=== PATIENT | female | born 1955 | race Hispanic/Latino ===

== ENCOUNTER 2017-05-18 12:26 | Emergency (ER) | payer OTHER ==
--- NOTE | 2017-05-18 16:05 | RAD ---
THREE VIEWS RIGHT FOOT: History: Swelling, progressively worse. FINDINGS: AP, lateral and oblique views demonstrates no evidence of right foot fractures, subluxations, or bon y lesions. A small calcaneal bone spur is seen. Arterial vessel calcifications noted. IMPRESSION: No evidence of right foot abnormality seen. POS: [facility]
--- NOTE | 2017-05-18 17:22 | ULT ---
RIGHT LOWER EXTREMITY VENOUS DOPPLER ULTRASOUND EVALUATION: History: Right foot edema, pain for three weeks. Date: 05-18-17 FINDINGS: Multiple longitudinal and transverse images of the right lower extremity venous system is obtained u sing a multihertz linear array transducer. Real-time, color flow, and spectral waveform doppler anal ysis is used to evaluate the right lower extremity venous system. The right common femoral, superficial femoral, femoral profunda, popliteal, posterior tibial vein, p ost trifurcation veins and right greater saphenous vein are all patent. No evidence of acute or old clot seen. IMPRESSION: No evidence of right lower extremity deep venous thrombosis. POS: [facility]
== END 2017-05-18 15:00 | disposition home or self-care (01) ==
LOC: ERS 12:26
DX: M79.89 Other specified soft tissue disorders (principal); K21.9 Gastro-esophageal reflux disease without esophagitis; F41.9 Anxiety disorder, unspecified; F31.9 Bipolar disorder, unspecified; F17.210 Nicotine dependence, cigarettes, uncomplicated; Z86.19 Personal history of other infectious and parasitic diseases; Z86.73 Personal history of transient ischemic attack (TIA), and cerebral infarction without residual deficits

== ENCOUNTER 2017-09-29 12:36 | Emergency (ER) | payer OTHER ==
--- NOTE | 2017-09-29 13:30 | CT ---
CT OF THE BRAIN WITHOUT CONTRAST: COMPARISON: 06/12/2010 HISTORY: Altered mental status. TECHNIQUE: Multiple contiguous axial images were obtained in a CT of the brain without contrast. 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 This leaves a streak artifac t. There is no evidence of hydrocephalus, intracranial hemorrhage, or extraaxial fluid collection. The visualized paranasal sinuses and mastoid air cells are well-aerated. IMPRESSION: No evidence of acute intracranial abnormality. POS: [facility]
[2017-09-29 16:47] LABS: Hemoglobin 14.1 g/dL (12.0-16.0); Mean Corpuscular HGB CONC 33.8 g/dL (32.0-36.0); Mean Platelet Volume 12.8 fL (7.4-10.4); RBC Distribution Width 13.6 % (11.5-14.5); Red Blood Cell (RBC) Count 4.16 mill/uL (4.20-5.40); White Blood Cell (WBC) Count 3.3 thou/uL (4.8-10.8)
[2017-09-29 16:59] LABS: #Eosinphils 0.2 thou/uL (0.0-0.7); #Monocytes 0.2 thou/uL (0.11-0.59); #Neutrophils 1.9 thou/uL (1.40-6.50); %Basophils 0.3 % (0.0-1.0); %Monocytes 4.4 % (0.0-10.0); %Neutrophils 59.3 % (42.0-75.0); Large Platelets SLIGHT; MDiff Complete? YES; PLT Morphology Comment Appears Decreased
[2017-09-29 17:00] LABS: Platelet Count 49 thou/uL (130-400)
[2017-09-29 17:08] LABS: ALT (SGPT) 25 U/L (8-55); AST (SGOT) 56 U/L (5-34); Albumin 3.1 g/dL (3.4-4.8); Alkaline Phosphatase 136 U/L (40-150); Anion Gap 9 mmol/L (10-20); BUN (Urea Nitrogen) 11 mg/dL (9.8-20.1); Bilirubin, Total 0.6 mg/dL (0.2-1.2); Calc. Creatinine Clearance 0 mL/min (70-130); Calcium 8.7 mg/dL (7.8-10.44); Carbon Dioxide 25 mmol/L (23-31); Chloride 108 mmol/L (98-107); Estimated GFR-MDRD 86; Globulin 4.3 g/dL (2.4-3.5); Glucose 97 mg/dL (80-115); Potassium 3.7 mmol/L (3.5-5.1); Protein, Total 7.4 g/dL (6.0-8.3); Sodium 138 mmol/L (136-145)
[2017-09-29 17:42] LABS: Bilirubin Negative (Negative); Blood, Urine Negative (Negative); Clarity CLOUDY (Clear); Glucose, Urine (Dipstick) Negative (Negative); Leukocyte Small (Negative); Nitrite Positive (Negative); Protein, Urine (Dipstick) Negative (Neg-Trace); Specific Gravity, Urine 1.021 (1.002-1.036)
[2017-09-29 17:47] LABS: Bacteria/HPF 4+ HPF (None Seen); Hyaline Casts/LPF 4-6 HYALINE CAST LPF (0-3 Hyaline)
== END 2017-09-29 18:26 | disposition home or self-care (01) ==
LOC: ERS 12:36
DX: N39.0 Urinary tract infection, site not specified (principal); D69.6 Thrombocytopenia, unspecified; R53.1 Weakness; K21.9 Gastro-esophageal reflux disease without esophagitis; F31.9 Bipolar disorder, unspecified; F41.9 Anxiety disorder, unspecified; F17.210 Nicotine dependence, cigarettes, uncomplicated; Z79.899 Other long term (current) drug therapy
CPT/HCPCS: 36415; 70450; 80053; 81003; 81015; 82140; 85025

== ENCOUNTER 2017-10-03 13:55 | Emergency (ER) | payer OTHER ==
[2017-10-03] MEDS ORDERED: Ondansetron HCl/PF 4 MG/2 ML Vial ONE ×2 (14:41→18:13)
[2017-10-03 14:47] LABS: Hemoglobin 14.3 g/dL (12.0-16.0); Mean Corpuscular HGB CONC 34.4 g/dL (32.0-36.0); Mean Corpuscular Volume 98.7 fl (81.0-99.0); Mean Platelet Volume 12.4 fL (7.4-10.4); RBC Distribution Width 13.8 % (11.5-14.5)
[2017-10-03 14:57] LABS: #Eosinphils 0.2 thou/uL (0.0-0.7); #Lymphocytes 0.8 thou/uL (1.20-3.40); #Monocytes 0.2 thou/uL (0.11-0.59); #Neutrophils 2.7 thou/uL (1.40-6.50); %Basophils 0.1 % (0.0-1.0); %Eosinophils 4.5 % (0.0-10.0); %Lymphocytes 21.8 % (21.0-51.0); %Monocytes 5.6 % (0.0-10.0); %Neutrophils 69.4 % (42.0-75.0); PLT Morphology Comment Appears Decreased; Platelet Count 37 thou/uL (130-400); RBC Morphology Normal
--- NOTE | 2017-10-03 15:06 | RAD ---
PORTABLE CHEST 1 VIEW: Date: 10/03/17 Time: 1445 hours HISTORY: Epigastric pain. FINDINGS: Comparison made with exam of 06/03/13. The heart size is normal. Chronic changes are again seen in the lung delong bilaterally. No lobar con solidation, pneumothorax, or pleural effusions are seen. There are postop changes of right rotator cu ff repair. IMPRESSION: No acute process. POS: [facility]
[2017-10-03] MEDS ORDERED: diphenhydrAMINE 50 MG/ML VIAL ONE ×2 (15:45→16:38)
[2017-10-03] MEDS ORDERED: methylPREDNISolone Sod Succ/PF 125 MG/2 ML VIAL ONE (15:45)
[2017-10-03] MEDS ORDERED: Famotidine/PF 20 mg/2ml Vial ONE (15:45)
[2017-10-03 16:09] LABS: ALT (SGPT) 24 U/L (8-55); AST (SGOT) 52 U/L (5-34); Albumin 2.9 g/dL (3.4-4.8); Alkaline Phosphatase 114 U/L (40-150); Anion Gap 7 mmol/L (10-20); BUN (Urea Nitrogen) 11 mg/dL (9.8-20.1); Bilirubin, Total 1.1 mg/dL (0.2-1.2); Calc. Creatinine Clearance 0 mL/min (70-130); Calcium 8.1 mg/dL (7.8-10.44); Carbon Dioxide 23 mmol/L (23-31); Chloride 107 mmol/L (98-107); Estimated GFR-MDRD Greater than 90; Globulin 3.8 g/dL (2.4-3.5); Glucose 95 mg/dL (80-115); Lipase Less than 4 U/L (8-78); Potassium 4.4 mmol/L (3.5-5.1); Protein, Total 6.7 g/dL (6.0-8.3); Sodium 133 mmol/L (136-145)
[2017-10-03] MEDS ORDERED: ISOVUE-370 76%-LOCM 1 ML ONE (16:38)
--- NOTE | 2017-10-03 17:08 | CT ---
CT ABDOMEN AND PELVIS WITH IV CONTRAST 10/03/17 HISTORY: Epigastric abdominal pain. FINDINGS: There is increased interstitial opacities at each lung base, greater on the right which could be rela sindy to either infectious process or element of pulmonary edema. There is recanalization of the periumbilical vein with small varices seen in the region of the gastro hepatic ligament. There is a filling defect seen within the main portal vein suggesting nonocclusive thrombus in the main portal vein. The splenic vein is patent. No hepatic lesion is appreciated. The s pleen is at the upper limits of normal in size, but otherwise has a normal CT appearance. The pancreas, bilateral adrenal glands, kidneys, urinary bladder, and uterus as well as adnexal struc tures have a normal CT appearance. There is thickening involving the distal portion of the gastric antrum, pylorus of the stomach as wel l as the first and second portions of the duodenum. No adjacent inflammatory changes are seen. While this could be infectious or inflammatory in etiology, hypoproteinemia could give a similar appearance given patient's history of cirrhosis. No free fluid, fluid collection, or lymphadenopathy is seen in the abdomen or pelvis. Degenerative changes are noted in the spine, and there is mild height loss of the T12 vertebral body which could be related to minimal compression fracture of indeterminate age. Sclerotic lesion is seen in the left iliac bone demonstrating characteristics most compatible with a bone island. IMPRESSION: 1. Thickening involving the distal gastric antrum and pylorus of the stomach as well as the firs t and second portions of the duodenum. This is overall nonspecific and could be related to hypoprotei nemia. There is no adjacent inflammatory changes, but infectious or inflammatory process is a possibi lity. 2. Findings suggesting portal hypertension with recanalization of the periumbilical vein as well as varices in the gastrohepatic ligament. There is a filling defect related to a3 nonocclusive throm bus in the main portal vein. 3. Interstitial densities at each lung base may be related to either asymmetric pulmonary edema or infectious process. 4. Above findings were discussed with Courtney in the Emergency Department on 10/03/17 at 1651 hours. POS: [facility]I
[2017-10-03 18:02] LABS: Bilirubin Negative (Negative); Blood, Urine Negative (Negative); Clarity CLEAR (Clear); Glucose, Urine (Dipstick) Negative (Negative); Leukocyte Negative (Negative); Nitrite Negative (Negative); Protein, Urine (Dipstick) Negative (Neg-Trace); Specific Gravity, Urine 1.025 (1.002-1.036)
== END 2017-10-03 18:36 | disposition home or self-care (01) ==
LOC: ERS 13:55
DX: K70.30 Alcoholic cirrhosis of liver without ascites (principal); B18.8 Other chronic viral hepatitis; K21.9 Gastro-esophageal reflux disease without esophagitis; F17.210 Nicotine dependence, cigarettes, uncomplicated; F41.9 Anxiety disorder, unspecified; F31.9 Bipolar disorder, unspecified; Z79.899 Other long term (current) drug therapy
CPT/HCPCS: 36415; 71045; 74177; 80053; 81003; 83690; 85025; 93005; 94760; 96365; 96375; 96376; 99406; J1200; J2270; J2405; J2930; S0028

== ENCOUNTER 2017-12-01 18:19 | Emergency (ER) | payer OTHER ==
--- NOTE | 2017-12-01 19:26 | RAD ---
TWO VIEWS CHEST: HISTORY: Chest pain. Chest tightness. COMPARISON: 10/13/2017 FINDINGS: Atherosclerosis of the aorta. Pulmonary vessels are prominent. Chronic changes of the lung oziel muller. No consolidation or masses. No pneumothorax or osseous abnormality. IMPRESSION: 1. Chronic changes. 2. Atherosclerosis. POS: [facility]
[2017-12-01 19:35] LABS: #Eosinphils 0.1 thou/uL (0.0-0.7); #Lymphocytes 1.2 thou/uL (1.20-3.40); #Monocytes 0.3 thou/uL (0.11-0.59); #Neutrophils 2.8 thou/uL (1.40-6.50); %Basophils 0.8 % (0.0-1.0); %Eosinophils 3.1 % (0.0-10.0); %Lymphocytes 26.4 % (21.0-51.0); %Monocytes 6.6 % (0.0-10.0); %Neutrophils 63.1 % (42.0-75.0); Mean Corpuscular Hemoglobin 31.6 pg (27.0-31.0); Mean Corpuscular Volume 95.7 fl (81.0-99.0); Mean Platelet Volume 10.3 fL (7.4-10.4); Platelet Count 63 thou/uL (130-400); RBC Distribution Width 14.8 % (11.5-14.5); Red Blood Cell (RBC) Count 4.43 mill/uL (4.20-5.40); White Blood Cell (WBC) Count 4.4 thou/uL (4.8-10.8)
[2017-12-01 19:51] LABS: ALT (SGPT) 33 U/L (8-55); AST (SGOT) 61 U/L (5-34); Albumin 3.4 g/dL (3.4-4.8); Alkaline Phosphatase 182 U/L (40-150); Anion Gap 8 mmol/L (10-20); BUN (Urea Nitrogen) 14 mg/dL (9.8-20.1); CK (CPK) 69 U/L (29-168); Calc. Creatinine Clearance 0 mL/min (70-130); Calcium 9.2 mg/dL (7.8-10.44); Carbon Dioxide 23 mmol/L (23-31); Chloride 109 mmol/L (98-107); Estimated GFR-MDRD 89; Globulin 4.2 g/dL (2.4-3.5); Glucose 93 mg/dL (80-115); Potassium 3.7 mmol/L (3.5-5.1); Protein, Total 7.6 g/dL (6.0-8.3); Sodium 136 mmol/L (136-145)
[2017-12-01 19:54] LABS: Troponin I Less than 0.010 ng/mL (< 0.028)
--- NOTE | 2017-12-01 20:50 | RAD ---
CHEST ONE VIEW: HISTORY: Chest tightness x3 days. COMPARISON: 10/03/2017 FINDINGS: Atherosclerosis of the aorta. Normal cardiac silhouette. Pulmonary vessels are within normal limits . Chronic changes throughout the lung parenchyma. Minimal obscuration of the right hemidiaphragm. No pneumothorax or osseous abnormalities. Remote right rotator cuff repair is noted. IMPRESSION: 1. No acute cardiopulmonary process. 2. Atherosclerosis. POS: [facility]
--- NOTE | 2017-12-01 21:10 | CT ---
CHEST CT WITHOUT CONTRAST: LIMITED CT OF THE THORACIC SPINE: HISTORY: Post traumatic pain. Chest tightness. The patient fell a week ago. Chest pain before fall. COMPARISON: None. TECHNIQUE: A noncontrast chest CT is performed in the axial plane. Reformatted images are submitted for interpr etation. FINDINGS: CHEST: Limited evaluation of the mediastinum due to lack of IV contrast. No mass, lymphadenopathy, or hematoma. Heart size is normal. Minimal atherosclerosis of a nonaneurysmal aorta. The visualized upper solid organs are grossly unremarkable. There is minimal nodularity of the liver . Correlate for cirrhosis. The central portal vein does appear to be prominent. There are extensive interstitial and ground glass opacities throughout the lung parenchyma, suggestin g fibrotic change/interstitial lung disease. No significant bronchiectasis; [id number], the left and right upper lobe bronchi are near the upper limits of normal. No suspicious masses. Trachea an d central bronchi are patent. No pneumothorax or pleural effusion. THORACIC SPINE: Visualized left and right ribs are unremarkable for posttraumatic change. The sternum is intact. There is mild loss of vertebral body height at T11 with sclerosis, suggesting a chronic process. No obvious paraspinal hematoma at T12. Correlate clinically. Abnormality at T1 [address] performed in September 2017, further supporting a chronic process. No obvious acut e thoracic spine fractures. IMPRESSION: 1. Chronic fibrotic changes/interstitial lung disease of the lung parenchyma. 2. No acute posttraumatic change. POS: [facility]
--- NOTE | 2018-02-07 14:36 | EKG ---
Test Reason : CHEST PAIN Blood Pressure : / mmHG Vent. Rate : 074 BPM Atrial Rate : 074 BPM P-R Int : 116 ms QRS Dur : 084 ms QT Int : 440 ms P-R-T Axes : -77 -12 026 degrees QTc Int : 488 ms Abnormal ECG Confirmed by EDIL SANON MD ([id number]), continuity editor LUIGI SEGOVIA ([id number]) on 02/07/2018 2:35:32 PM Referred By: Confirmed By:EDIL SANON MD
== END 2017-12-01 21:45 | disposition home or self-care (01) ==
LOC: ERS 18:19
DX: S20.212A Contusion of left front wall of thorax, initial encounter (principal); K74.60 Unspecified cirrhosis of liver; K21.9 Gastro-esophageal reflux disease without esophagitis; I69.351 Hemiplegia and hemiparesis following cerebral infarction affecting right dominant side; F41.9 Anxiety disorder, unspecified; F31.9 Bipolar disorder, unspecified; F17.210 Nicotine dependence, cigarettes, uncomplicated; Z71.9 Counseling, unspecified; W19.XXXA Unspecified fall, initial encounter
CPT/HCPCS: 36415; 71045; 71046; 71250; 80053; 82553; 83690; 83880; 84484; 85025; 93005; 99406

== ENCOUNTER 2018-10-15 13:17 | Outpatient (CLI) | payer OTHER ==
--- NOTE | 2018-10-15 15:10 | BD ---
DEXA BONE MINERAL DENSITY STUDY: HISTORY: Screening. COMPARISON: None. FINDINGS: Lumbar Spine: BMD (g/cm2) L1 0.868 T-Score: -1.1 0.5 L2 0.841 T-Score: -1.7 0.1 L3 0.826 T-Score: -2.3 -0.5 L4 0.836 T-Score: -2.0 -0.1 L1-L4 0.842 T-Score: -1.9 -0.1 WHO classification osteopenia. Femoral Neck: 0.648 T-Score: -1.8 -0.3 Total Femur: 0.728 T-Score: -1.8 -0.5 WHO classification osteopenia. 10-YEAR fracture risk: Major osteoporotic fracture hip fracture 2% IMPRESSION: Osteopenia with fracture risk as above. POS: [facility]
== END 2018-10-15 13:18 | disposition home or self-care (01) ==
LOC: BICMAMMO 13:17
PROVIDERS: ATTEND Family Medicine
DX: Z13.820 Encounter for screening for osteoporosis (principal); M85.89 Other specified disorders of bone density and structure, multiple sites
CPT/HCPCS: 77080

== ENCOUNTER 2019-05-28 17:31 | Emergency (ER) | payer OTHER ==
[2019-05-28] MEDS ORDERED: diphenhydrAMINE 25 MG CAP ONE (19:30)
[2019-05-28 19:41] LABS: #Eosinphils 0.3 thou/uL (0.0-0.7); #Lymphocytes 0.8 thou/uL (1.20-3.40); #Monocytes 0.3 thou/uL (0.11-0.59); #Neutrophils 1.8 thou/uL (1.40-6.50); %Basophils 0.5 % (0.0-1.0); %Eosinophils 10.5 % (0.0-10.0); %Lymphocytes 25.5 % (21.0-51.0); %Monocytes 8.9 % (0.0-10.0); %Neutrophils 54.5 % (42.0-75.0); Hemoglobin 13.5 g/dL (12.0-16.0); Mean Corpuscular HGB CONC 34.1 g/dL (32.0-36.0); Mean Corpuscular Hemoglobin 34.9 pg (27.0-31.0); Mean Platelet Volume 8.6 fL (7.4-10.4); Platelet Count 59 thou/uL (130-400); RBC Distribution Width 14.9 % (11.5-14.5); Red Blood Cell (RBC) Count 3.87 mill/uL (4.20-5.40); White Blood Cell (WBC) Count 3.3 thou/uL (4.8-10.8)
[2019-05-28 20:01] LABS: ALT (SGPT) 20 U/L (8-55); AST (SGOT) 40 U/L (5-34); Albumin 2.7 g/dL (3.4-4.8); Alkaline Phosphatase 69 U/L (40-110); Anion Gap 11 mmol/L (10-20); BUN (Urea Nitrogen) 11 mg/dL (9.8-20.1); Bilirubin, Total 1.5 mg/dL (0.2-1.2); Calc. Creatinine Clearance 0 mL/min (70-130); Carbon Dioxide 24 mmol/L (23-31); Chloride 111 mmol/L (98-107); Estimated GFR-MDRD Greater than 90; Globulin 3.7 g/dL (2.4-3.5); Glucose 97 mg/dL (80-115); Potassium 3.6 mmol/L (3.5-5.1); Protein, Total 6.4 g/dL (6.0-8.3); Sodium 142 mmol/L (136-145)
[2019-05-28 20:54] LABS: INR-International Normal Ratio 1.3; PTT 31.5 SEC (22.9-36.1); Prothrombin Time 15.7 SEC (12.0-14.7)
== END 2019-05-28 21:21 | disposition home or self-care (01) ==
LOC: ERS 17:31
DX: B86 Scabies (principal); D69.6 Thrombocytopenia, unspecified; K21.9 Gastro-esophageal reflux disease without esophagitis; F31.9 Bipolar disorder, unspecified; F41.9 Anxiety disorder, unspecified; F17.210 Nicotine dependence, cigarettes, uncomplicated; Z86.73 Personal history of transient ischemic attack (TIA), and cerebral infarction without residual deficits
CPT/HCPCS: 36415; 80053; 85025; 85610; 85730; Q0163

== ENCOUNTER 2019-06-20 08:56 | Emergency (ER) | payer OTHER ==
[2019-06-20] MEDS ORDERED: Fentanyl 100 MCG/2 ML VIAL ONE (10:05)
[2019-06-20] MEDS ORDERED: Ondansetron PF 4 MG/2 ML Vial ONE (10:05)
[2019-06-20 10:18] LABS: #Eosinphils 0.3 thou/uL (0.0-0.7); #Lymphocytes 1.1 thou/uL (1.20-3.40); #Monocytes 0.2 thou/uL (0.11-0.59); #Neutrophils 2.4 thou/uL (1.40-6.50); %Basophils 0.5 % (0.0-1.0); %Eosinophils 7.8 % (0.0-10.0); %Lymphocytes 27.5 % (21.0-51.0); %Monocytes 4.3 % (0.0-10.0); %Neutrophils 59.9 % (42.0-75.0); Hemoglobin 14.8 g/dL (12.0-16.0); Mean Corpuscular HGB CONC 32.3 g/dL (32.0-36.0); Mean Corpuscular Hemoglobin 33.7 pg (27.0-31.0); Mean Platelet Volume 9.7 fL (7.4-10.4); Platelet Count 61 thou/uL (130-400); RBC Distribution Width 14.4 % (11.5-14.5); Red Blood Cell (RBC) Count 4.38 mill/uL (4.20-5.40); White Blood Cell (WBC) Count 4.1 thou/uL (4.8-10.8)
[2019-06-20 10:35] LABS: ALT (SGPT) 20 U/L (8-55); AST (SGOT) 43 U/L (5-34); Albumin 2.9 g/dL (3.4-4.8); Alkaline Phosphatase 102 U/L (40-110); Anion Gap 10 mmol/L (10-20); BUN (Urea Nitrogen) 12 mg/dL (9.8-20.1); Calc. Creatinine Clearance 0 mL/min (70-130); Calcium 8.3 mg/dL (7.8-10.44); Carbon Dioxide 20 mmol/L (23-31); Chloride 109 mmol/L (98-107); Estimated GFR-MDRD Greater than 90; Globulin 4.1 g/dL (2.4-3.5); Glucose 94 mg/dL (80-115); Lipase 7 U/L (8-78); Potassium 4.2 mmol/L (3.5-5.1); Sodium 135 mmol/L (136-145)
[2019-06-20 11:08] LABS: Bacteria/HPF 2+ HPF (None Seen); Bilirubin Negative (Negative); Blood, Urine Negative (Negative); Clarity Clear (Clear); Glucose, Urine (Dipstick) Normal (Negative); Leukocyte 25 Leu/uL (Negative); Nitrite Negative (Negative); Protein, Urine (Dipstick) 50 mg/dL (Neg-Trace); RBC/HPF 0-3 HPF (0-3); Urobilinogen 12 mg/dL (Less than 2)
--- NOTE | 2019-06-20 11:15 | CT ---
CT ABDOMEN AND PELVIS WITHOUT CONTRAST: Date: 06/20/19 HISTORY: Abdominal pain. FINDINGS: Comparison made with exam of 10/03/17. Chronic changes in the lung bases are again seen. Absence of oral and IV contrast reduces the sensitivity of exam, particularly for evaluation of solid organs and bowel. There are calcified granulomas in the liver. There is irregularity of the surface of the liver consistent with cirrhosis. The spleen measures 11.0 cm in length. No free air or free fl uid is seen in the abdomen or pelvis. No calcified gallstones are noted. No calculi noted in the kidn eys, ureters, or the urinary bladder. No hydroureteronephrosis seen on either side. Uterus is present . There are vascular calcifications without evidence of aneurysmal dilatation of the abdominal aorta. T here are degenerative changes in the spine. There is mild compression of T12 and L1 vertebral bodies, likely chronic. IMPRESSION: 1. No CT evidence of urinary tract calculi or obstruction. 2. Cirrhosis of the liver. 3. No evidence of ascites. POS: [facility]
[2019-06-20] MEDS ORDERED: Lidocaine Viscous Sol 2% 15 ml UD Cup ONE (12:06)
[2019-06-20] MEDS ORDERED: Mag-Al 1200 mg/1200 mg/30 ML UDCUP ONE (12:06)
== END 2019-06-20 11:40 | disposition home or self-care (01) ==
LOC: ERS 08:56
DX: K27.9 Peptic ulcer, site unspecified, unspecified as acute or chronic, without hemorrhage or perforation (principal); K29.70 Gastritis, unspecified, without bleeding; K21.9 Gastro-esophageal reflux disease without esophagitis; K76.1 Chronic passive congestion of liver; E83.01 Wilson's disease; F41.9 Anxiety disorder, unspecified; F31.9 Bipolar disorder, unspecified; F17.210 Nicotine dependence, cigarettes, uncomplicated; Z86.73 Personal history of transient ischemic attack (TIA), and cerebral infarction without residual deficits
CPT/HCPCS: 74176; 80053; 81003; 81015; 83690; 84484; 85025; 93005; 96361; 96374; 96375; J2405; J3010

== ENCOUNTER 2019-07-14 12:47 | Inpatient (IN) | payer MEDICARE, MEDICAID ==
[~2019-07-14 12:47] MED LIST: Iopamidol-370 76% 500 ML 1 ML ONE
[2019-07-14 13:23] LABS: #Eosinphils 0.2 thou/uL (0.0-0.7); #Lymphocytes 0.9 thou/uL (1.20-3.40); #Monocytes 0.2 thou/uL (0.11-0.59); #Neutrophils 2.1 thou/uL (1.40-6.50); %Basophils 0.5 % (0.0-1.0); %Monocytes 5.2 % (0.0-10.0); %Neutrophils 62.3 % (42.0-75.0); Hemoglobin 14.6 g/dL (12.0-16.0); Mean Corpuscular HGB CONC 32.9 g/dL (32.0-36.0); Mean Corpuscular Hemoglobin 34.2 pg (27.0-31.0); Mean Platelet Volume 8.4 fL (7.4-10.4); Platelet Count 81 thou/uL (130-400); Red Blood Cell (RBC) Count 4.27 mill/uL (4.20-5.40); White Blood Cell (WBC) Count 3.4 thou/uL (4.8-10.8)
[2019-07-14 13:43] LABS: ALT (SGPT) 16 U/L (8-55); AST (SGOT) 44 U/L (5-34); Albumin 2.8 g/dL (3.4-4.8); Alkaline Phosphatase 99 U/L (40-110); Anion Gap 9 mmol/L (10-20); BUN (Urea Nitrogen) 8 mg/dL (9.8-20.1); Bilirubin, Total 2.3 mg/dL (0.2-1.2); Calc. Creatinine Clearance 0 mL/min (70-130); Calcium 8.4 mg/dL (7.8-10.44); Carbon Dioxide 23 mmol/L (23-31); Chloride 109 mmol/L (98-107); Estimated GFR-MDRD 87; Globulin 4.5 g/dL (2.4-3.5); Glucose 112 mg/dL (80-115); Potassium 4.4 mmol/L (3.5-5.1); Protein, Total 7.3 g/dL (6.0-8.3); Sodium 137 mmol/L (136-145)
[2019-07-14] MEDS ORDERED: Morphine 4 MG/ML VIAL ONE (17:25)
[2019-07-14] MEDS ORDERED: Ondansetron PF 4 MG/2 ML Vial ONE (17:25)
[2019-07-14] MEDS ORDERED: diphenhydrAMINE 50 MG/ML VIAL ONE (17:57)
[2019-07-14] MEDS ORDERED: methylPREDNISolone Sod Succ/PF 125 MG/2 ML VIAL ONE (17:57)
[2019-07-14] MEDS ORDERED: Famotidine/PF 20 mg/2ml Vial ONE (17:57)
--- NOTE | 2019-07-14 18:37 | RAD ---
Exam: Chest one view HISTORY: Sharp right-sided chest pain COMPARISON: 12/01/2017 FINDINGS: Extensive linear and interstitial parenchymal changes noted throughout both lungs including the perih ilar regions and right lower lung zone, more prominent than on the prior study raising concern for some acute bilateral atypical pneumonia or pneumonitis versus asymmetric edema. There may well be sarwat e underlying chronic interstitial lung disease as well. No confluent pneumonia. No significant cardiomegaly. No pleural effusion. IMPRESSION: New linear and interstitial parenchymal changes bilaterally. Possibilities include that of atypical p neumonia or pneumonitis versus some asymmetric edema. Consider short-term follow-up.
--- NOTE | 2019-07-14 19:15 | CT ---
EXAM: Abdomen and pelvic CT scan with contrast: HISTORY: Right lower quadrant pain COMPARISON: 10/03/2017 and 06/20/2019 FINDINGS: Fairly extensive linear and nodular parenchymal changes in both lung bases, right worse than left, st able from prior study. Liver: Evidence for cirrhosis with evidence for portal hypertension and recannulization of the perium bilical vein. There appears to be some calcified old thrombus in the main portal vein which is slightly narrowed but is not obstructed. Upper abdomen and left upper quadrant varices. Small hiatal hernia. Minimal thickening of the antrum of the stomach but considerably improved from prior 10/03/2017 study. Gallbladder:Unremarkable. Pancreas:Unremarkable Spleen:Unremarkable. Adrenal glands:Unremarkable. Kidneys:No renal calculus or acute obstruction. No solid or cystic renal mass. No evidence for bowel obstruction. No CT evidence for acute appendicitis. The urinary bladder is unremarkable. Reproductive system:Unremarkable No abscess, adenopathy, or abnormal fluid collection within the abdomen or pelvis. No evidence for ascites. IMPRESSION: No significant new process in the abdomen or pelvis. Numerous findings as above. No CT evidence for a cute appendicitis.
[2019-07-14 19:37] LABS: Bilirubin Negative (Negative); Blood, Urine Negative (Negative); Clarity Turbid (Clear); Glucose, Urine (Dipstick) Normal (Negative); Leukocyte 75 Leu/uL (Negative); Nitrite 2+ (Negative); Protein, Urine (Dipstick) Negative (Neg-Trace); RBC/HPF 0-3 HPF (0-3); Squamous Epithelial 0-3 HPF (0-3); Urobilinogen Normal mg/dL (Less than 2); WBC/HPF 21-50 HPF (0-3)
[2019-07-14 19:42] LABS: Bacteria/HPF 4+ HPF (None Seen)
[2019-07-14] MEDS ORDERED: cefTRIAXone\\ROCEPHIN 2 GM VIAL ONE (19:53)
[2019-07-14] MEDS ORDERED: cefTRIAXone\\ROCEPHIN 1 GM VIAL ONE (19:53)
--- NOTE | 2019-07-14 19:56 | PDOC.FPRHP ---
- History of Present Illness Chief Complaint: RLQ pain History of Present Illness: Ms. Rosales is a 64yoF with a PMH significant for alcoholic cirrhosis and hepatitis C who presented to the ED for RLQ pain that began last night and woke her from sleep. She states that it is severe, sharp and stabbing in nature and was constant last night which kept her from sleeping. This morning the pain did not go away which prompted her to come to the emergency department. She has not had pain similar to this before. She denied any nausea, vomiting, diarrhea or constipation. She also has had a mild cough, but otherwise no URI symptoms. ED Course: Duoneb, ASA, 500mg Azithromycin, 2gm ceftriaxone, benadryl & pepcid prior to CT scan, solumedrol 125mg, morphine 4mg, zofran 4mg - Allergies/Adverse Reactions Allergies Allergy/AdvReac Type Severity Reaction Status Date / Time Iodine and Iodide Containing Allergy Severe Anaphylaxis Verified 06/20/19 10:41 Produc - Home Medications Medication Instructions Recorded Confirmed Type No Known 07/14/19 07/14/19 History - History PMHx: COPD Cirrhosis, secondary to alcohol abuse Hep C, untreated Bipolar I OA IV Drug use Esophageal varices Tobacco abuse PSHx: Right shoulder FHx: Non-contributory Social: 1 pack cigarettes q 3 weeks. Former drug user - crack cocaine, IV drugs No current alcohol use, last drink >1year ago. - Review of Systems General: denies: fever/chills, weight/appetite/sleep changes, night sweats, fatigue Eyes: denies: eye pain, vision changes ENT: denies: nasal congestion, rhinorrhea Respiratory: denies: cough, congestion, shortness of breath Cardiovascular: denies: chest pain, palpitation, edema, paroxysmal nocturnal dyspnea, orthopnea Gastrointestinal: reports: abdominal pain. denies: nausea, vomiting, diarrhea, constipation, GI bleeding Genitourinary: denies: incontinence, dysuria, polyuria Skin: denies: rashes, lesions Musculoskeletal: denies: pain, tenderness Neurological: denies: numbness, syncope, seizure - Vital signs BP: 134/68 HR: 68 RR: 29 Tmax:99F Pox: 97% on nebulizer treatment, 88% on RA prior Wt: 64kg - Physical Exam Constitutional: NAD, awake, alert and oriented, well developed HEENT: normocephalic and atraumatic, PERRLA, EOMI, conjunctiva clear, grossly normal vision, grossly normal hearing, MMM Neck: supple, trachea midline Heart: RRR, normal S1/S2, no murmurs/rubs/gallops Lungs: CTAB, no respiratory distress, good air movement, no rales/rhonchi Abdomen: soft, bowel sounds present -Abdomen: TTP in RLQ Musculoskeletal: normal structure, normal tone Neurological: no focal deficit Skin: no rash/lesions, good turgor, capillary refill <2 seconds Heme/Lymphatic: no unusual bruising or bleeding, no purpura, no petechia Psychiatric: normal mood and affect, good judgment and insight FMR H&P: Results - Labs Result Diagrams: 07/14/19 13:05 07/14/19 13:05 Lab results: WBC 3.4 thou/uL (4.8-10.8) L 07/14/19 13:05 Hgb 14.6 g/dL (12.0-16.0) 07/14/19 13:05 Hct 44.4 % (36.0-47.0) 07/14/19 13:05 MCV 104.0 fL (78.0-98.0) H 07/14/19 13:05 Plt Count 81 thou/uL (130-400) L 07/14/19 13:05 Neutrophils % 62.3 % (42.0-75.0) 07/14/19 13:05 Sodium 137 mmol/L (136-145) 07/14/19 13:05 Potassium 4.4 mmol/L (3.5-5.1) 07/14/19 13:05 Chloride 109 mmol/L (98-107) H 07/14/19 13:05 Carbon Dioxide 23 mmol/L (23-31) 07/14/19 13:05 BUN 8 mg/dL (9.8-20.1) L 07/14/19 13:05 Creatinine 0.68 mg/dL (0.6-1.1) 07/14/19 13:05 Glucose 112 mg/dL (80-115) 07/14/19 13:05 Calcium 8.4 mg/dL (7.8-10.44) 07/14/19 13:05 Total Bilirubin 2.3 mg/dL (0.2-1.2) H 07/14/19 13:05 AST 44 U/L (5-34) H 07/14/19 13:05 ALT 16 U/L (8-55) 07/14/19 13:05 Alkaline Phosphatase 99 U/L (40-110) 07/14/19 13:05 B-Natriuretic Peptide 100.1 pg/mL (0-100) H 07/14/19 17:37 Serum Total Protein 7.3 g/dL (6.0-8.3) 07/14/19 13:05 Albumin 2.8 g/dL (3.4-4.8) L 07/14/19 13:05 Urine Ketones Negative mg/dL (Negative) 07/14/19 19:10 Urine Blood Negative (Negative) 07/14/19 19:10 Urine Nitrite 2+ (Negative) A 07/14/19 19:10 Ur Leukocyte Esterase 75 Siva/uL (Negative) A 07/14/19 19:10 Urine RBC 0-3 HPF (0-3) 07/14/19 19:10 Urine WBC 21-50 HPF (0-3) A 07/14/19 19:10 Ur Squamous Epith Cells 0-3 HPF (0-3) 07/14/19 19:10 Urine Bacteria 4+ HPF (None Seen) A 07/14/19 19:10 Laboratory Tests 07/14/19 07/14/19 07/14/19 17:37 17:37 17:37 D-Dimer 0.96 H Troponin I Less than 0.010 B-Natriuretic Peptide 100.1 H Laboratory Tests 07/14/19 20:31 Bicarbonate Actual 20.0 L ABG pH 7.40 ABG pCO2 33.4 L ABG pO2 56.4 L* - EKG Interpretation EKG: NSR, rate 60bpm, normal EKG - Radiology Interpretation CT scan - abdomen Status: report reviewed by me (No significant new process in the abdomen or pelvis. Numerous findings as above. No CT evidence for a cute appendicitis. Fairly extensive linear and nodular parenchymal changes in both lung bases, right worse than left, st able from prior study. Liver: Evidence for cirrhosis with evidence for portal hypertension and recannulization of the perium bilical vein. There appears to be some calcified old thrombus in the main portal vein which is slightly narrowed but is not obstructed. Upper abdomen and left upper quadrant varices.) Chest x-ray Status: report reviewed by me (New linear and interstitial parenchymal changes bilaterally. Possibilities include that of atypical pneumonia or pneumonitis versus some asymmetric edema. Consider short-term follow-up.) FMR H&P: A/P - Plan Acute hypoxic respiratory failure 2/2 CAP - O2 sats 80s on RA on arrival. Respiratory rate in the 30s. - Will treat with Rocephin and Azithromycin - Blood culture pending - CXR shows atypical pneumonia - D-dimer mildly elevated (0.96) however Wells criteria is 0 and suspicion for VTE is low. - Underlying COPD COPD - on Spiriva at home, albuterol prn. - DuoNebs ordered prn. - Currently not wheezing and exacerbation does not seem likely. - She is still smoking and working to quit. - Room air ABG ordered to evaluate for need for home oxygen Asymptomatic bacteruria - She denies polyuria, hematuria, frequency or urgency. - Rocephin will cover for UTI RLQ pain - CT abdomen and pelvis negative. Mildly tender to palpation in RLQ. - Possibly related to UTI - Will continue to monitor. Cirrhosis, alcoholic - platelets 81, increased from 50s in May. - she is currently sober. UDS pending. Disposition/LOS: Dispo: Stable, inpatient. Likely LOS > 48 hours. IV fluids: SL VTE: Lovenox Code: DNR / DNI FMR H&P: Upper Level - Plan Date/Time: 07/14/191954 PCP: Gus HPI: This is a 64 female who presented to the ED for RLQ pain and was found to have community acquired pneumonia. She has a pertinent history including bipolar 1, Alcoholic cirrhosis, thrombocytopenia, Hep C, IV drug use, COPD, esophageal varices, and tobacco abuse. She was complaining of RLQ for 1 day, states she did not eat anything since yesterday. Pain is totally resolved after receiving pain meds in the ED. Burning pain worse with eating, did not radiate. Denies N/V /D, fevers, chills, or sweats. She denies cough, opthopnea, or sob with exertion. She denies chest pain or palpitations. REVIEW OF SYSTEMS: Gen: no fever, chills, or sweats Neuro: no numbness/tingling, no weakness, denies headache Eyes: no visual changes ENT: no hearing changes, no sore throat, no runny nose Resp: no cough, no SOB, no wheeze Card: denies chest pain, no palpitations GI: see hpi : no dysuria, no hematuria MSK: no myalgias, no joint pain/stiffness Heme: no easy bruising/bleeding, no blood thinners Skin: no rash, no erythema PHYSICAL EXAMINATION: General: NAD, alert and oriented x3 HEENT: PERRLA, EOMI, normal sclera, oropharynx without erythema or exudate Neck: Supple. Full ROM. Heart/Cardiovascular System: RRR, Cap refill < 3 seconds, no rub, no murmur Lungs/Respiratory System: clear to auscultation bilaterally. No increased work of breathing. Room air. Abdomen/Gastro-Intestinal System: normal bowel sounds, no masses, no organomegaly, mild tenderness to deep palpations RLQ, lainez negative Extremities: Warm extremities. No cyanosis or edema. Neuro: No gross deficits appreciated. CN 2-12 grossly intact Psychiatry: Awake, Alert and cooperative with exam Skin: No lesions, rashes, or ulcers Musculoskeletal: Full ROM A/P: # Acute hypoxic resp failure 2/2 CAP - resp in 30s, o2 sat mid 80s on initial presentation - sats low 90s after neb on 1L o2 - rocephin, azithro, blood culture pending - CXR suggests atypical PNA, CURB-65: 2 - room air ABG ordered - dimer 0.96, Wells:0, does not suspect VTE at this time # COPD not in apparent exacerbation - home Spiriva - may need home o2 - no wheezes on exam, do not suspect exacerbation at this time - smoking 2-3 cigarettes per day, recd cessation # UTI, asymptomatic - on rocephin as above # Alc cirrhosis, IV drug use, Thrombocytopenia - Plt 81 improved from May, chronic - Denies drug use or alcohol for over 1 year - UDS pending #RLQ - CT neg, pain totally resolved, UTI? - consider RUQ US if pain persists Fluids: TKO Code status: DNR/DNI PPx: Lovenox Dispo: 1-2 days, inpatient
[2019-07-14] MEDS ORDERED: Guaifenesin DM 100-10/5 ML UDCUP PO PRN (20:29)
[2019-07-14] MEDS ORDERED: Acetaminophen 325 MG TAB PO PRN (20:29)
[2019-07-14] MEDS ORDERED: Azithromycin 500 MG VIAL ONE (20:30)
[2019-07-14] MEDS ORDERED: Aspirin Chewable 81 MG TAB ONE (20:33)
[2019-07-14 21:04] LABS: Amphetamine Not Detected (NotDetected); Barbiturates Screen Not Detected (NotDetected); Benzodiazepine Screen Not Detected (NotDetected); Cocaine Metabolite Screen Not Detected (NotDetected); Medtox Control Line Valid? VALID (VALID); Medtox Reader # READER 4; Methadone Not Detected (NotDetected); Methamphetamine Not Detected (NotDetected); Opiate Screen Detected (NotDetected); Oxycodone Screen Not Detected (NotDetected); Phencyclidine (PCP) Not Detected (NotDetected); THC/Cannabinoid Screen Not Detected (NotDetected); Tricyclic Screen Not Detected (NotDetected)
[2019-07-14 21:20] LABS: Troponin I Less than 0.010 ng/mL (< 0.028)
[2019-07-14 22:07] VITALS: BMI 26.7
[2019-07-14 22:31] LABS: Base Excess (BEa) -3.9 mEq/L (-2.0 to +3.0); CO2 Tension 33.4 mmHg (35.0-45.0); Calcium, Ionized 1.13 mmol/L (1.12-1.30); Carboxyhemoglobin (COHb) 1.5 gm% (0.0-3.0); Hemoglobin (Hb) 14.9 g/dL (12.0-16.0); Potassium - ABG Lab 4.19 mmol/L (3.70-5.30)
[2019-07-14 22:34] LABS: O2 Tension (PaO2) 56.4 mmHg (> 80.0); Puncture Site RRA
[2019-07-15 00:09] LABS: Troponin I Less than 0.010 ng/mL (< 0.028)
--- NOTE | 2019-07-15 06:12 | PDOC.FM ---
- Subjective Subjective: Pt states she is feeling good today. Her breathing feels good. She was on the bedside commode and had no pain w/ urination. She was able to walk around without problem. - Objective MAR Reviewed: Yes Vital Signs & Weight: Vital Signs (12 hours) Temp Pulse Resp Pulse Ox 07/15/19 04:00 67 21 H 92 L 07/15/19 03:32 98.6 F 07/14/19 23:36 99.0 F 07/14/19 21:10 98.5 F Weight Weight 64.155 kg Most Recent Monitor Data Heart Rate from ECG 74 NIBP 121/66 NIBP BP-Mean 84 Respiration from ECG 17 SpO2 96 I&O: 07/13/19 07/14/19 07/15/19 06:59 06:59 06:59 Intake Total 450 Balance 450 Result Diagrams: 07/15/19 06:26 07/14/19 13:05 Radiology Reviewed by me: Yes (Right possible infiltrate) Phys Exam - Physical Examination Constitutional: NAD Respiratory: no wheezing rales over RLL, clear to auscultation on Left Cardiovascular: RRR, no significant murmur Gastrointestinal: soft, non-tender Musculoskeletal: no edema, pulses present Neurological: non-focal Psychiatric: normal affect, A&O x 3 Skin: no rash Dx/Plan (1) Cirrhosis of liver Code(s): K74.60 - UNSPECIFIED CIRRHOSIS OF LIVER Status: Acute (2) Community acquired pneumonia Code(s): J18.9 - PNEUMONIA, UNSPECIFIED ORGANISM Status: Acute (3) Acute respiratory failure with hypoxia Code(s): J96.01 - ACUTE RESPIRATORY FAILURE WITH HYPOXIA Status: Acute (4) COPD (chronic obstructive pulmonary disease) Status: Acute - Plan Plan: 64-yo F admitted for: Acute hypoxic respiratory failure 2/2 CAP - O2 sats 80s on RA on arrival. Respiratory rate in the 30s. Now improved without oxygen requirements. - Rocephin and Azithromycin given. Will change to Levaquin 750mg daily for 4 days. - Blood culture pending - CXR shows atypical pneumonia COPD - on Spiriva at home, albuterol prn. - DuoNebs ordered prn. - Currently not wheezing. - She is still smoking and working to quit. - Room air ABG obtained: 7.40/33/56/20. Hypoxic and low bicarb. A-a gradient was increased at 51. Likely has a component of pulmonary HTN secondary to COPD. Asymptomatic bacteruria - She denies polyuria, hematuria, frequency or urgency. - Rocephin will cover for UTI. No need for further treatment. RLQ pain, resolved - CT abdomen and pelvis negative. Mildly tender to palpation in RLQ. - Possibly related to UTI - Will continue to monitor. Cirrhosis, alcoholic Thrombocytopenia, chronic Leukopenia, chronic - values compared to outpatient labs and are chronic. - platelets 81, increased from 50s in May. - she is currently sober x1 year. - hx of anemia. Not anemic today. May have overall bone marrow suppression from chronic alcohol use which is compensated by a polycythemia from pulm HTN/COPD. Will order anemia labs: ferritin, TIBC, iron, RBC folate, smear, and thiamine. UDS + for opiates - pt home med list only includes Tramadol as potential cause. Has history of taking Harleigh, but last Rx filled in 2014 Dispo: Stable, inpatient. IV fluids: SL VTE: Lovenox Code: DNR / DNI Chloe Cuadra MD PGY1
[2019-07-15 06:45] LABS: #Lymphocytes 0.5 thou/uL (1.20-3.40); #Monocytes 0.1 thou/uL (0.11-0.59); #Neutrophils 2.1 thou/uL (1.40-6.50); %Basophils 0.2 % (0.0-1.0); %Eosinophils 0.1 % (0.0-10.0); %Lymphocytes 18.1 % (21.0-51.0); %Monocytes 2.9 % (0.0-10.0); %Neutrophils 78.7 % (42.0-75.0); Mean Corpuscular HGB CONC 32.8 g/dL (32.0-36.0); Mean Corpuscular Hemoglobin 34.4 pg (27.0-31.0); Mean Platelet Volume 8.6 fL (7.4-10.4); Platelet Count 58 thou/uL (130-400); RBC Distribution Width 13.6 % (11.5-14.5); Red Blood Cell (RBC) Count 3.77 mill/uL (4.20-5.40); White Blood Cell (WBC) Count 2.7 thou/uL (4.8-10.8)
[2019-07-15] MEDS ORDERED: Enoxaparin Sodium 40 MG/0.4 ML SYRINGE SC SCH (09:00)
[2019-07-15 11:09] VITALS: TEMP 98.6
[2019-07-15 11:27] LABS: Hemoglobin 13.5 g/dL (12.0-16.0); Mean Corpuscular HGB CONC 32.7 g/dL (32.0-36.0); Mean Corpuscular Hemoglobin 34.1 pg (27.0-31.0); Mean Platelet Volume 8.4 fL (7.4-10.4); Platelet Count 81 thou/uL (130-400); RBC Distribution Width 13.6 % (11.5-14.5); Red Blood Cell (RBC) Count 3.96 mill/uL (4.20-5.40); White Blood Cell (WBC) Count 5.1 thou/uL (4.8-10.8)
[2019-07-15 11:44] LABS: Iron 154 ug/dL (50-170); Iron Binding Capacity, Total 300 mcg/dL (265-497)
[2019-07-15 11:53] LABS: Band 1 % (5-11); Lymphocytes 10 % (21-51); MDiff Complete? YES; Monocytes 4 % (0-10); Neutrophil 85 % (42-75); Platelet Morphology Comment Appears Decreased; RBC Morphology Normal
[2019-07-15 11:58] LABS: Syphilis Antibody Nonreactive (Nonreactive); Syphilis Antibody Index 0.11 S/CO (<1.00 Non-Reactive)
[2019-07-15 12:05] LABS: Ferritin 42.79 ng/mL (10-291)
--- NOTE | 2019-07-15 12:29 | PRG ---
DATE OF SERVICE: 07/15/2019 Ms. Rosales is a very pleasant 64-year-old female with a history of hepatitis C, alcoholism, and cirrhosis, as well as COPD. She was admitted with a very mild exacerbation of her COPD, which is completely resolved. She will be discharged later today. She carries a history of hep C, but the details are not known. She states she has never been treated for hep C, and we have urged her to follow up with her PCP as this is now a very treatable disease even though she already has cirrhosis. She will also need yearly monitoring for HCC. Job ID: [id number]
[2019-07-15] MEDS ORDERED: cefTRIAXone\\ROCEPHIN 2 GM in Sodium Chloride 0.9% 100 ML IVPB SCH (20:00)
[2019-07-15] MEDS ORDERED: Azithromycin 500 MG in Sodium Chloride 0.9% 250 ML 250 ML IVPB SCH (21:00)
[2019-07-17 16:08] LABS: Hepatitis C RNA-PCR Positive (Negative)
--- NOTE | 2019-07-19 14:17 | DIS ---
DATE OF ADMISSION: 07/14/2019 DATE OF DISCHARGE: 07/15/2019 RESIDENT: Chloe Cuadra MD ATTENDING: Eduardo Dang MD CONSULTS: None. PROCEDURES PERFORMED: 1. Chest x-ray, which showed new linear interstitial parenchymal changes bilaterally, possibly atypical pneumonia versus pneumonitis versus asymmetric edema. 2. Abdomen pelvis CT. No significant new process. No acute appendicitis. PRIMARY DIAGNOSIS: Acute hypoxic respiratory failure, secondary to community-acquired pneumonia. SECONDARY DIAGNOSES: 1. Chronic obstructive pulmonary disease. 2. Asymptomatic bacteriuria. 3. Right lower quadrant pain, which resolved. 4. Alcoholic cirrhosis. 5. Chronic thrombocytopenia. 6. Chronic leukopenia. 7. Opiate use as confirmed by urine drug screen. DISCHARGE MEDICATIONS: 1. Tylenol 650 mg p.o. q.4 hours p.r.n. 2. Albuterol sulfate HFA one puff b.i.d. one inhaler. 3. Nexium 20 mg p.o. daily. 4. Robitussin DM 15 mils p.o. q.4 hours p.r.n. 5. Levaquin 750 mg p.o. for four days. 6. Prednisone 40 mg p.o. daily x5 days. 7. Spiriva Respimat inhaler two inhalations daily. DISCONTINUED MEDICATIONS: None. HISTORY OF PRESENT ILLNESS AND HOSPITAL COURSE: The patient presented to the ED for right lower quadrant pain that was severe, sharp, and stabbing in nature. Upon arrival to the ED, she had a mild cough, but denied other URI symptoms. In the emergency department, she received DuoNeb, aspirin, azithromycin, ceftriaxone, Benadryl, and Pepcid prior to her CT scan. She received Solu-Medrol, morphine, and Zofran due to a documented allergic reaction to iodine and iodine containing products. CT scan was negative for acute appendicitis, which is what was suspected with the patient's right lower quadrant pain. The right lower quadrant pain has spontaneously resolved. However, on chest x-ray, it was noted that she did have a change which could have represented pneumonia. Pneumonia also was not auscultated on physical exam. However, due to the chest x-ray, it was decided to treat for atypicals and community-acquired pneumonias. Levaquin was the drug of choice chosen. With regard to her other problems, her platelet counts remain stable compared to her other baseline as well as her white blood count. She is chronically leukopenic and thrombocytopenic, which was discovered upon chart review. She had bacteriuria, but was asymptomatic. She did receive Rocephin in the emergency room, which would cover for this UTI, so no further treatment was warranted. Iron studies were ordered to workup her anemia. Her iron level was normal. TIBC was normal. Ferritin also was normal. Her troponins were negative. Her BNP was 100, which was higher than her baseline of 28 in November. The patient's B12 was 883. Her RBC folate also was appropriate. Her AST was 44 and ALT was 16, total bilirubin was 2.3. She does have cirrhosis of the liver. PHYSICAL EXAMINATION: On the day of discharge, the patient was feeling well, walking around the [facility]. She had no respiratory distress, was not requiring any oxygen. She also had a regular rate and rhythm. No murmurs. Legs had no edema. Her blood culture showed no growth preliminarily. DISPOSITION: Stable. DISCHARGE INSTRUCTIONS: 1. Location: Home. 2. Diet: Regular. 3. Activity: As tolerated. 4. Followup: Follow up with PCP in 7 days. Job ID: [id number]
[2019-07-19 16:09] LABS: Folate,Hemolysate 497.9 ng/mL (Not Estab.); Hematocrit 39.1 % (34.0-46.6); RBC Folate Test Component 1273 ng/mL (>498)
== END 2019-07-15 13:30 | disposition home or self-care (01) | DRG 193 ==
LOC: ERS 12:47 → IMCU/EMU 21:12
PROVIDERS: ADMIT Family Medicine; ATTEND Family Medicine
DX: J18.9 Pneumonia, unspecified organism (principal); J96.01 Acute respiratory failure with hypoxia; N39.0 Urinary tract infection, site not specified; J44.0 Chronic obstructive pulmonary disease with (acute) lower respiratory infection; J44.1 Chronic obstructive pulmonary disease with (acute) exacerbation; Z66 Do not resuscitate; K70.30 Alcoholic cirrhosis of liver without ascites; B19.20 Unspecified viral hepatitis C without hepatic coma; F31.9 Bipolar disorder, unspecified; M19.90 Unspecified osteoarthritis, unspecified site; F17.210 Nicotine dependence, cigarettes, uncomplicated; D69.6 Thrombocytopenia, unspecified; D72.819 Decreased white blood cell count, unspecified
CPT/HCPCS: 36415; 71045; 74177; 80053; 80306; 81003; 81015; 82607; 82728; 82747; 82805; 83540; 83550; 83880; 84425; 84484; 85025; 85060; 85379; 86780; 87040; 87521; 93005; 94640; 96361; 96365; 96375; J0456; J0696; J1200; J1650; J2270; J2405; J2930; J7620; Q9967; S0028

== ENCOUNTER 2019-09-02 13:55 | Observation (INO) | payer MEDICARE, MEDICAID ==
[2019-09-02 14:33] LABS: #Eosinphils 0.2 thou/uL (0.0-0.7); #Monocytes 0.3 thou/uL (0.11-0.59); #Neutrophils 2.8 thou/uL (1.40-6.50); %Basophils 0.9 % (0.0-1.0); %Eosinophils 3.7 % (0.0-10.0); %Lymphocytes 22.6 % (21.0-51.0); %Monocytes 5.9 % (0.0-10.0); %Neutrophils 66.9 % (42.0-75.0); Mean Corpuscular HGB CONC 33.1 g/dL (32.0-36.0); Mean Corpuscular Hemoglobin 33.7 pg (27.0-31.0); Mean Platelet Volume 10.4 fL (7.4-10.4); Platelet Count 62 thou/uL (130-400); Red Blood Cell (RBC) Count 4.45 mill/uL (4.20-5.40); White Blood Cell (WBC) Count 4.2 thou/uL (4.8-10.8)
[2019-09-02 14:53] LABS: ALT (SGPT) 20 U/L (8-55); AST (SGOT) 40 U/L (5-34); Alkaline Phosphatase 99 U/L (40-110); Anion Gap 11 mmol/L (10-20); BUN (Urea Nitrogen) 17 mg/dL (9.8-20.1); Bilirubin, Total 2.3 mg/dL (0.2-1.2); CK (CPK) 116 U/L (29-168); Calc. Creatinine Clearance 0 mL/min (70-130); Calcium 8.6 mg/dL (7.8-10.44); Carbon Dioxide 21 mmol/L (23-31); Chloride 113 mmol/L (98-107); Estimated GFR-MDRD 81; Globulin 4.2 g/dL (2.4-3.5); Glucose 133 mg/dL (80-115); Potassium 3.4 mmol/L (3.5-5.1); Protein, Total 7.2 g/dL (6.0-8.3); Sodium 142 mmol/L (136-145)
--- NOTE | 2019-09-02 15:11 | RAD ---
PORTABLE CHEST: DATE: 09/02/2019. PROVIDED CLINICAL HISTORY: Dyspnea. FINDINGS: Comparison is made with the study dated 07/14/2019. Diffuse interstitial fibrotic changes with a mid to lower lung zone predominance are redemonstrated. There is superimposed pulmonary vascular conges tion suspected. There is no aristides lobar consolidation. There is no evidence for pleural fluid or pn eumothorax. The cardiac and mediastinal silhouette is unchanged in appearance. IMPRESSION: Chronic interstitial fibrotic changes with superimposed findings as congestive failure suspected. Fo llowup is recommended. POS: TPC
--- NOTE | 2019-09-02 15:34 | CT ---
CT ABDOMEN AND PELVIS WITHOUT CONTRAST: 09/02/19 HISTORY: Right upper quadrant abdominal pain. COMPARISON: Exam of pelvis 07/14/19. FINDINGS: Fibrosis in the lung bases. No significant pericardial effusion. No nephroureterolithiasis or hydrour eteronephrosis. No secondary evidence of a recently passed stone. Noncontrast evaluation of the liver, gallbladder, spleen are unremarkable as well as the pancreas. No dilated loops of large or small bowel. No acute osseous abnormality. High grade degenerative disc arthropathy lower lumbar spine with grade I L4 over L5 anterolisthesis. Large collateral vessels from the left iliac vein to the portal vein is present and unchanged. Numerous splenic varices present. IMPRESSION: 1. No nephroureterolithiasis or hydroureteronephrosis. No secondary evidence of recently passed stone. 2. No acute inflammatory process in the abdomen or pelvis. POS: CET
--- NOTE | 2019-09-02 16:28 | PDOC.FPRHP ---
- History of Present Illness Chief Complaint: abdominal pain History of Present Illness: Patient is a 64F with PMHx of cirrhosis, Hepatitis C, prior brain aneurysm with no reported residual deficits that presents to the ED with abdominal pain. The patient reports that she has been having abdominal pain and SOB for the last several days. The abdominal pain is mostly in the RUQ. She has a hx of cirrhosis that she does not see a GI for. Her daughter states that she has not been taking any of her home medications. Uses 2L O2 NC at home. She denies cp, cough, v/d. Daughter also reports that she has had intermittent episodes of AMS throughout the last 2 weeks that is unusual for her. A&O x 2, not oriented to time PCP:Richi ED Course: 40mg lasix, 40meq KCL - Allergies/Adverse Reactions Allergies Allergy/AdvReac Type Severity Reaction Status Date / Time Iodine and Iodide Containing Allergy Severe Anaphylaxis Verified 06/20/19 10:41 Produc - Home Medications Medication Instructions Recorded Confirmed Type Albuterol Sulfate HFA (OR) 1 puff FS BID #1 inh 07/15/19 Rx [Proventil Hfa (or)] Esomeprazole Magnesium [Nexium 20 mg PO DAILY #30 tablet.dr 07/15/19 09/02/19 Rx 24Hr] Tiotropium [place] [Spiriva 2 inh IH DAILY #1 inhaler 07/15/19 09/02/19 Rx Respimat] Gabapentin [Neurontin] 100 mg PO TID 09/02/19 09/02/19 History - History PMHx: cirrhosis, Hepatitis C, prior brain aneurysm with no reported residual deficits PSHx: tubal ligation, R rotator cuff tear, shunting done during aneurysm FHx: no hx of cirrhosis Social: quit smoking 1 month ago, former cocaine use, no etoh use - Review of Systems General: denies: fever/chills, weight/appetite/sleep changes Eyes: denies: eye pain, vision changes ENT: denies: nasal congestion, rhinorrhea Respiratory: reports: shortness of breath. denies: cough Cardiovascular: reports: edema. denies: chest pain Gastrointestinal: reports: nausea. denies: vomiting, diarrhea Genitourinary: denies: dysuria, discharge Skin: reports: jaundice. denies: rashes Musculoskeletal: denies: pain, stiffness Neurological: denies: syncope, seizure Psychological: denies: anxiety, depression - Vital signs BP: [118/86] HR: [78] RR: [24] Tmax: [98.4F] Pox: [92]% on [4L] Wt: [61.2kg] - Physical Exam Constitutional: NAD, well developed HEENT: EOMI, MMM Neck: supple, FROM Chest: no-tender to palpation, no lesions Heart: RRR, normal S1/S2 Lungs: other (bibasilar rales) Abdomen: bowel sounds present, other (RUQ ttp, no fluid wave) Musculoskeletal: normal structure, normal tone Neurological: no focal deficit, normal sensation Skin: other (appears slightly jaundices) Heme/Lymphatic: no unusual bruising or bleeding, no LAD Psychiatric: normal mood and affect, other (poor judgement and insight) FMR H&P: Results - Labs Result Diagrams: 09/02/19 14:14 09/02/19 14:14 Lab results: WBC 4.2 thou/uL (4.8-10.8) L 09/02/19 14:14 Hgb 15.0 g/dL (12.0-16.0) 09/02/19 14:14 Hct 45.2 % (36.0-47.0) 09/02/19 14:14 MCV 102.0 fL (78.0-98.0) H 09/02/19 14:14 Plt Count 62 thou/uL (130-400) L 09/02/19 14:14 Neutrophils % 66.9 % (42.0-75.0) 09/02/19 14:14 Sodium 142 mmol/L (136-145) 09/02/19 14:14 Potassium 3.4 mmol/L (3.5-5.1) L 09/02/19 14:14 Chloride 113 mmol/L (98-107) H 09/02/19 14:14 Carbon Dioxide 21 mmol/L (23-31) L 09/02/19 14:14 BUN 17 mg/dL (9.8-20.1) 09/02/19 14:14 Creatinine 0.72 mg/dL (0.6-1.1) 09/02/19 14:14 Glucose 133 mg/dL (80-115) H 09/02/19 14:14 Calcium 8.6 mg/dL (7.8-10.44) 09/02/19 14:14 Total Bilirubin 2.3 mg/dL (0.2-1.2) H 09/02/19 14:14 AST 40 U/L (5-34) H 09/02/19 14:14 ALT 20 U/L (8-55) 09/02/19 14:14 Alkaline Phosphatase 99 U/L (40-110) 09/02/19 14:14 Ammonia 73 umol/L (18-72) H 09/02/19 14:14 Creatine Kinase 116 U/L (29-168) 09/02/19 14:14 B-Natriuretic Peptide 19.3 pg/mL (0-100) 09/02/19 14:14 Serum Total Protein 7.2 g/dL (6.0-8.3) 09/02/19 14:14 Albumin 3.0 g/dL (3.4-4.8) L 09/02/19 14:14 - EKG Interpretation EKG: Sinus rhythm, short ND QT/QTc 400/481 - Radiology Interpretation Chest x-ray Status: report reviewed by me (Chronic interstitial fibrotic changes with superimposed findings as congestive failure suspected) CT scan - abdomen Status: report reviewed by me (No nephroureterolithiasis or hydroureteronephrosis. No secondary evidence of recently passed stone. No acute inflammatory process of the abdomen or pelvis) FMR H&P: A/P - Problem List (1) Hepatitis C Current Visit: Yes Status: Chronic Code(s): B19.20 - UNSPECIFIED VIRAL HEPATITIS C WITHOUT HEPATIC COMA (2) RUQ pain Current Visit: Yes Status: Acute Code(s): R10.11 - RIGHT UPPER QUADRANT PAIN (3) Acute respiratory failure with hypoxia Current Visit: No Status: Acute Code(s): J96.01 - ACUTE RESPIRATORY FAILURE WITH HYPOXIA (4) COPD (chronic obstructive pulmonary disease) Current Visit: No Status: Chronic (5) Cirrhosis of liver Current Visit: No Status: Chronic Code(s): K74.60 - UNSPECIFIED CIRRHOSIS OF LIVER - Plan #Acute Hypoxic respiratory failure - CXR c/w pulmonary edema -on respiratory exam the patient does not appear to have pulmonary edema -received 40mg lasix in the ED, will continue to diurese with PO lasix and monitor -possibly related to cor pulmonale -O2 via NC prn to keep O2 sat > 92% -Echo ordered, pending #Hepatic Encephalopathy - Pt has reportedly had AMS x2 weeks per daughter -daughter states patient is usually A&O x 2, which is in congruence with exam today - Start lactulose -will continue to monitor mental status #RUQ Pain - RUQ US ordered, results pending #Cirrhosis -Chronic, chronic hx of Hepatitis C -Consider starting spironolactone -Coags pending -will calculate and trend MELD score -Low protein diet -Can consider GI consult in am #COPD -Appears controlled at this time -will continue home meds that patient has been prescribed from clinic #Hepatitis C -will encourage f/u outpatient for treatment DVT ppx: Dispo: Code: DNR PCP: Richi LEWIS H&P: Upper Level - Pertinent history 64 yo F with PMHx of cirrhosis and COPD w/baseline 2L of O2 presents with complaint of 2-3 days of worsening RUQ pain. Pain does not radiate, no associated fever, no diarrhea or n/v. In the ER CXR showed pulmonary edema. Labs were generally WNL other than bili of 2.9 and ammonia of 73, plt of 62. PMHx: Etoh cirrhosis COPD Bipolar D/O GERD PSHx: Cerebral aneurism repair R shoulder surger FHx: non contributory Social Hx: smokes daily, alcoholic with no drug use since dx of cirrhosis, no drugs - Pertinent findings See corporate intern note for full ROS, PE, vitals, and labs ROS Gen denies fever or chills CV Denies CP or palpitation or orthopnea Resp Complains of SOB. Denies cough GI complains of abdominal pain. Denies n/v/d denies dysuria, frequency, urgency Neuro Denies numbness, weakness, changes in vision PE General A&O to self and location HEENT NCAT CV RRR, no murmur, no JVD negative hepatojugular reflex Resp Bibasilar rales Abd RUQ TTP. No fluid wave or ascites. Normal BS Extremities no edema Neuro No focal deficits - Plan Date/Time: 09/02/19 1628 INoel DO, have evaluated this patient and agree with findings/plan as outlined by corporate intern resident. Pertinent changes/additions are listed here. 1.Hypoxic respiratory failure - CXR c/w pulmonary edema, however the rest of her exam is not c/w CHF. Will attempt diuresis and monitor response. This may be related to cor pulmonale. Does not appear infectious in etiology. -Give O2 via NC as needed -Will give oral Lasix and monitor I/O, increase dose if needed -Echo 2.Hepatic Encephalopathy - Pt is apparently altered per her daughter, however she states that she is always A&O x2. -Start lactulose 3.RUQ Pain - RUQ US 4.Cirrhosis -Consider starting spironolactone -Coags pending to calculate and trend MELD -Low protein diet 5.COPD -Appears controlled at this time See corporate intern portion for management of other chronic conditions PPx SCD Diet HH and low protein Code DNAR Dispo: Stable patient. Would expect 2-3 days inpatient at this time. Addendum - Attending - Attending Attestation Date/Time: 09/02/19 1630 I personally evaluated the patient and discussed the management with Dr. English/ Michele I agree with the History, Examination, Assessment and Plan documented above with any addition or exceptions noted below. 64 yo HF PMH COPD on 2L NC at baseline, cirrhosis. Presents with CC of SOB, RUQ pain, and increased oxygen requirement. Daughter states at baseline patient spo2 is 71%. VSS. mild RUQ pain on TTP. Crackles in lung bases. Labs all appear to be at baseline except for ammonia which is 73. EKG RAD. CXR fluid overload. BNP normal. CT abdomen and pelvis negative. Observation for acute on chronic hypoxia 2/2 Possible HF exacerbation, worsening mentation, and RUQ pain. Will give small dose of lasix, order TTE, and observer on tele. RUQ US for pain. Start lactulose. Consider GI consult since not established. Will check Coags to determine MELD score.
[2019-09-02] MEDS ORDERED: Potassium Chloride 20 MEQ TAB ONE (16:54)
[2019-09-02] MEDS ORDERED: Furosemide 40 MG TAB ONE ×2 (16:54→17:00)
[2019-09-02 17:34] VITALS: BMI 27.1
[2019-09-02] MEDS ORDERED: Ondansetron ODT 4 MG TAB PO PRN (17:35)
[2019-09-02 18:41] LABS: INR-International Normal Ratio 1.3; PTT 31.8 SEC (22.9-36.1); Prothrombin Time 16.1 SEC (12.0-14.7)
[2019-09-02] MEDS: Ipratropium Bromide 2.5 ml Neb NEB SCH (19:50)
[2019-09-02] MEDS: PROVENTIL INHALER 6.7 G (200 INHALATIONS) INH SCH (19:53)
[2019-09-02] MEDS: Gabapentin 100 MG CAP PO SCH (20:10)
[2019-09-03] MEDS: Ipratropium Bromide 2.5 ml Neb NEB SCH ×5 (00:51→22:43)
[2019-09-03 05:01] LABS: #Eosinphils 0.4 thou/uL (0.0-0.7); #Lymphocytes 1.5 thou/uL (1.20-3.40); #Monocytes 0.5 thou/uL (0.11-0.59); #Neutrophils 2.6 thou/uL (1.40-6.50); %Basophils 0.7 % (0.0-1.0); %Lymphocytes 30.1 % (21.0-51.0); %Monocytes 9.1 % (0.0-10.0); %Neutrophils 52.1 % (42.0-75.0); Hemoglobin 13.2 g/dL (12.0-16.0); Mean Corpuscular HGB CONC 33.4 g/dL (32.0-36.0); Mean Corpuscular Hemoglobin 33.9 pg (27.0-31.0); Mean Platelet Volume 9.9 fL (7.4-10.4); Platelet Count 63 thou/uL (130-400); RBC Distribution Width 13.1 % (11.5-14.5)
[2019-09-03 05:11] LABS: ALT (SGPT) 17 U/L (8-55); AST (SGOT) 36 U/L (5-34); Albumin 2.6 g/dL (3.4-4.8); Alkaline Phosphatase 96 U/L (40-110); Anion Gap 7 mmol/L (10-20); BUN (Urea Nitrogen) 15 mg/dL (9.8-20.1); Bilirubin, Total 1.4 mg/dL (0.2-1.2); Calc. Creatinine Clearance 82 mL/min (70-130); Carbon Dioxide 26 mmol/L (23-31); Chloride 108 mmol/L (98-107); Estimated GFR-MDRD 85; Globulin 3.6 g/dL (2.4-3.5); Glucose 96 mg/dL (80-115); Potassium 3.6 mmol/L (3.5-5.1); Protein, Total 6.2 g/dL (6.0-8.3); Sodium 137 mmol/L (136-145)
--- NOTE | 2019-09-03 06:17 | PDOC.FM ---
- Subjective Subjective: Pt c/o SOB the last several days that is improved this morning. c/o sharp pain in RUQ abdomen and constipation. States she used to use IV drugs and unsure how long she had hep C. - Objective MAR Reviewed: Yes Vital Signs & Weight: Vital Signs (12 hours) Temp Pulse Resp BP Pulse Ox 09/03/19 02:07 98.2 F 80 22 H 105/55 L 99 09/03/19 00:51 76 16 95 09/02/19 23:13 99.1 F 78 18 104/58 L 93 L 09/02/19 19:54 96 09/02/19 19:53 95 09/02/19 19:50 18 96 09/02/19 19:10 98.5 F 77 18 121/56 L 94 L Weight Weight 64.682 kg Result Diagrams: 09/03/19 04:27 09/03/19 04:27 Phys Exam - Physical Examination Constitutional: NAD HEENT: moist MMs, sclera anicteric Neck: no nodes, full ROM bibasilar crackles. Cardiovascular: RRR, no significant murmur, no rub Gastrointestinal: soft, no distention, positive bowel sounds RUQ tenderness to palpation Musculoskeletal: no edema, pulses present Neurological: non-focal, moves all 4 limbs Psychiatric: normal affect Skin: no rash, cap refill <2 seconds Dx/Plan (1) Acute respiratory failure with hypoxia Code(s): J96.01 - ACUTE RESPIRATORY FAILURE WITH HYPOXIA Status: Acute (2) RUQ pain Code(s): R10.11 - RIGHT UPPER QUADRANT PAIN Status: Acute (3) Hepatitis C Code(s): B19.20 - UNSPECIFIED VIRAL HEPATITIS C WITHOUT HEPATIC COMA Status: Chronic (4) COPD (chronic obstructive pulmonary disease) Status: Chronic (5) Cirrhosis of liver Code(s): K74.60 - UNSPECIFIED CIRRHOSIS OF LIVER Status: Chronic - Plan Plan: #Acute Hypoxic respiratory failure - CXR c/w pulmonary edema, chronic interstitial fibrotic chagnes w/ superimposed findings suggestive of edema. -bibasialr crackles. -received 40mg lasix in the ED, will continue to diurese with PO lasix and monitor -possibly related to cor pulmonale or congestion -O2 via NC prn to keep O2 sat > 92% -Echo ordered, pending - continue duonebs and albuterol #Hepatic Encephalopathy - Pt has reportedly had AMS x2 weeks per daughter -daughter states patient is usually A&O x 2, which is in congruence with exam today - Start lactulose, goal BM's 2-3 daily. -will continue to monitor mental status #RUQ Pain - RUQ US ordered:no acute findings. - CT abd pelvis: no acute inflammatory process. #Cirrhosis -Chronic, chronic hx of Hepatitis C -Consider starting spironolactone -Coags pending -will calculate and trend MELD score -Low protein diet #COPD -Appears controlled at this time -will continue home meds that patient has been prescribed from clinic #Hepatitis C -will encourage f/u outpatient for treatment DVT ppx: Dispo: stable, observation anticipate <48 hr stay Code: DNR PCP: Richi
[2019-09-03] MEDS: PROVENTIL INHALER 6.7 G (200 INHALATIONS) INH SCH ×2 (07:33→18:57)
--- NOTE | 2019-09-03 07:54 | ULT ---
Right upper quadrant ultrasound: 09/03/2019 COMPARISON: None HISTORY: Epigastric pain with constipation FINDINGS: Routine right upper quadrant ultrasound performed. The pancreas is poorly assessed secondary to bowel gas. The hepatic parenchyma demonstrates nonspecific heterogeneity. The degree of bowel gas present limits detailed assessment of the liver. No focal liver lesion is seen. No gallbladder wall thickening or pericholecystic fluid. No gallstones are noted. The common bile tian t measures 2 mm, within normal limits. Right kidney measures 9.3 cm in craniocaudal dimension and demonstrates no evidence for stone, hydron ephrosis, or mass. The digital media planner reports a negative Holbrook's sign. IMPRESSION: No acute findings.
[2019-09-03] MEDS: Gabapentin 100 MG CAP PO SCH ×3 (08:01→21:04)
[2019-09-03] MEDS: Furosemide 40 MG TAB PO SCH ×2 (08:01→14:16)
[2019-09-03] MEDS ORDERED: Simethicone Chewable 80 MG TAB PO SCH (11:00)
[2019-09-03 11:26] LABS: Amphetamine Not Detected (NotDetected); Barbiturates Screen Not Detected (NotDetected); Benzodiazepine Screen Not Detected (NotDetected); Cocaine Metabolite Screen Not Detected (NotDetected); Medtox Control Line Valid? VALID (VALID); Medtox Reader # READER 4; Methadone Not Detected (NotDetected); Methamphetamine Not Detected (NotDetected); Opiate Screen Not Detected (NotDetected); Oxycodone Screen Not Detected (NotDetected); Phencyclidine (PCP) Not Detected (NotDetected); THC/Cannabinoid Screen Not Detected (NotDetected); Tricyclic Screen Not Detected (NotDetected)
[2019-09-03 11:31] LABS: Actual Bicarbonate (HCO3a) 22.6 mEq/L (22-28); Base Excess (BEa) -0.8 mEq/L (-2.0 to +3.0); CO2 Tension 33.9 mmHg (35.0-45.0); Calcium, Ionized 1.13 mmol/L (1.12-1.30); Carboxyhemoglobin (COHb) 1.4 gm% (0.0-3.0); Hemoglobin (Hb) 15.1 g/dL (12.0-16.0); Potassium - ABG Lab 3.21 mmol/L (3.70-5.30); pH, Arterial 7.44 (7.35-7.45)
[2019-09-03 11:34] LABS: ALV-art Gradient 55.155 (0-20); O2 Tension (PaO2) 52.2 mmHg (> 80.0); Puncture Site RRA
--- NOTE | 2019-09-03 12:04 | PRG ---
DATE OF SERVICE: 09/03/2019 ADDENDUM: Addendum to the note of Dr. Marixa Newby. I have examined the patient and have discussed the case with Dr. Newby. I agree with her assessment and plan. Ms. Rosales is a pleasant 64-year-old female with a history of hepatitis C and at least [id number] history of smoking, which she stopped three months ago. She presented with evidence of pulmonary congestion and heart failure. We are currently in the midst of treating that condition. Evidently, she is not receiving treatment for hepatitis C because up until few months ago, she was still using illicit intravenous drugs. She already sees a GI physician and was diagnosed with cirrhosis on an imaging study in [place], [place] 4 years ago. In the event, I think it would be a good idea to perform HIDA scan given that she has significant tenderness in the right upper quadrant. She is still somewhat short of breath, so I would check an arterial blood gas and begin some DuoNeb treatments as well. Further imaging will depend upon results of discussions with the GI doctor to see what she has had done already. Job ID: [id number]
[2019-09-03 12:38] LABS: Syphilis Antibody Nonreactive (Nonreactive); Syphilis Antibody Index 0.11 S/CO (<1.00 Non-Reactive)
[2019-09-03 13:55] LABS: HIV (1/2) Antibody/Antigen Non-Reactive (NonReactive); HIV 1/2 INDEX 0.16 S/CO (<1.00)
--- NOTE | 2019-09-03 14:47 | NM ---
HEPATOBILIARY SCAN: HISTORY: Right upper quadrant pain. No gallstones on ultrasound of the same day. RADIOPHARMACEUTICAL: Technetium 99m mebrofenin 5.5 millicuries injected intravenously. FINDINGS: There is good tracer extraction by the liver with prompt excretion into the biliary tract and normal filling of the gallbladder. The exam was terminated at 38 minutes at the refusal of the patient to co ntinue further. IMPRESSION: No evidence of acute cholecystitis. POS: TPC
[2019-09-03] MEDS ORDERED: Ibuprofen 800 MG TAB PO SCH (19:15)
[2019-09-03] MEDS: Simethicone Chewable 80 MG TAB PO SCH (21:04)
[2019-09-03] MEDS ORDERED: Ipratropium Bromide 2.5 ml Neb ONE (22:42)
--- NOTE | 2019-09-04 05:23 | PDOC.FM ---
- Subjective Subjective: Pt reports feeling almost back to baseline. Pt on her home O2 requirement. states abd pain much improved, present but nothing like before. Had several BM's yesterday. no acute overnight events. - Objective MAR Reviewed: Yes Vital Signs & Weight: Vital Signs (12 hours) Temp Pulse Resp BP Pulse Ox 09/04/19 03:29 97.9 F 82 20 108/55 L 93 L 09/03/19 22:43 80 16 09/03/19 19:44 98 F 81 19 127/60 100 09/03/19 18:48 77 16 90 L Weight Weight 61.689 kg I&O: 09/02/19 09/03/19 09/04/19 06:59 06:59 06:59 Intake Total 950 1250 Output Total 750 Balance 950 500 Result Diagrams: 09/03/19 04:27 09/03/19 04:27 Phys Exam - Physical Examination Constitutional: NAD HEENT: PERRLA, moist MMs writhing tongue movements. Neck: no nodes, supple, full ROM Respiratory: no wheezing, no rales, no rhonchi, clear to auscultation bilateral Cardiovascular: RRR, no significant murmur, no rub Gastrointestinal: soft, no distention, positive bowel sounds tenderness to deep palpation RUQ. Improved from yesterdays exam. Musculoskeletal: no edema, pulses present Neurological: non-focal, moves all 4 limbs Psychiatric: normal affect Skin: no rash, cap refill <2 seconds Dx/Plan (1) RUQ pain Code(s): R10.11 - RIGHT UPPER QUADRANT PAIN Status: Acute (2) Hepatitis C Code(s): B19.20 - UNSPECIFIED VIRAL HEPATITIS C WITHOUT HEPATIC COMA Status: Chronic (3) COPD (chronic obstructive pulmonary disease) Status: Chronic (4) Cirrhosis of liver Code(s): K74.60 - UNSPECIFIED CIRRHOSIS OF LIVER Status: Chronic - Plan Plan: #Acute Hypoxic respiratory failure, improved - CXR c/w pulmonary edema, chronic interstitial fibrotic chagnes w/ superimposed findings suggestive of edema. -bibasialr crackles. -received 40mg lasix in the ED, will continue to diurese with PO lasix and monitor -possibly related to cor pulmonale or congestion -O2 via NC prn to keep O2 sat > 92% -Echo ordered, pending taken 09/04 - continue duonebs and albuterol #Hepatic Encephalopathy, improved - Pt has reportedly had AMS x2 weeks per daughter -daughter states patient is usually A&O x 2, which is in congruence with exam today - Start lactulose, goal BM's 2-3 daily. -likely d/c home today reports about 5 BM's yesterday. #RUQ Pain - RUQ US ordered:no acute findings. - CT abd pelvis: no acute inflammatory process. - Pt refused HIDA scar due to time scan requires. Showed no evidence of cholecystitis from original part of study. #Cirrhosis -chronic hx of Hepatitis C -Consider starting spironolactone -Coags pending -will calculate and trend MELD score -Low protein diet -Recommending f/u with GI Dr. Mendosa in out pt setting . #COPD -Appears controlled at this time -will continue home meds that patient has been prescribed from clinic #Hepatitis C -will encourage f/u outpatient for treatment - Pt denies any drug abuse currently. Clean for about 3 months. # IVDA history - pt reports having an IVDA problem in the past - cocaine as well as IV drugs. DVT ppx: Dispo: stable, observation anticipate <48 hr stay Code: DNR PCP: Richi Addendum - Attending - Attending Attestation Date/Time: 09/04/19 0189 I personally evaluated the patient and discussed the management with Dr. Newby I agree with the History, Examination, Assessment and Plan documented above with any addition or exceptions noted below. Patient stable tolerating po no pain stable respiratory status. She will need f/u Dr Mendosa for further GI recommendation. Home on protein restricted diet and lactulose.
[2019-09-04] MEDS: Simethicone Chewable 80 MG TAB PO SCH (07:39)
[2019-09-04] MEDS: Gabapentin 100 MG CAP PO SCH (07:39)
[2019-09-04] MEDS: Furosemide 40 MG TAB PO SCH (07:40)
[2019-09-04 07:48] VITALS: BP 118/61; TEMP 98.1
[2019-09-04] MEDS: Ipratropium Bromide 2.5 ml Neb NEB SCH (07:58)
[2019-09-04] MEDS: PROVENTIL INHALER 6.7 G (200 INHALATIONS) INH SCH (08:06)
--- NOTE | 2019-09-05 00:24 | DIS ---
DATE OF ADMISSION: 09/02/2019 DATE OF DISCHARGE: 09/04/2019 RESIDENT: Marixa Newby DO. CONSULTS: PT eval/treat. PROCEDURES: Echocardiogram which showed ejection fraction of 60% to 65%, grade 1/3 diastolic dysfunction, left ventricular size is normal, normal left ventricular wall thickness. HIDA scan, which was terminated due to patient not wanting to complete the procedure, although did show no evidence of acute cholecystitis. Abdominal ultrasound, the hepatic parenchyma demonstrates nonspecific heterogeneity. The degree of bowel gas present limits detailed assessment of the liver. No focal liver lesion is seen. No acute findings. CT abdomen and pelvis, no nephroureterolithiasis or hydroureteronephrosis. No secondary evidence of recently passed stone. No acute inflammatory process of the abdomen or pelvis. DIAGNOSES: 1. Acute hypoxic respiratory failure. 2. Hepatic encephalopathy. 3. Right upper quadrant abdominal pain. 4. Cirrhosis from hepatitis C. 5. Chronic obstructive pulmonary disease. 6. Hepatitis C. 7. IV drug abuse history. DISCHARGE MEDICATIONS: 1. Lactulose 20 g q.i.d. 2. ProAir 2 puffs q.4 hours p.r.n. HISTORY OF PRESENT ILLNESS/HOSPITAL COURSE: Ms. Alexandra Rosales is a 64-year- old female who was brought into the emergency department because of shortness of breath and slightly altered mentation from her baseline. Daughter states that usually she is alert and oriented x2, which was pretty consistent with what she was dressed in the hospital. She was found to be in acute hypoxic respiratory failure. While at home, she was on 2 L of oxygen nasal cannula. She was requiring about 4 L and hypoxic. It is thought to be due to cor pulmonale or congestion. She is not clinically volume overloaded; however, we ordered an abdominal ultrasound as the patient has a history of cirrhosis and the patient has not been treated for her hepatitis C because she has a history of drug abuse including IV drug abuse and tested positive for drugs when trying to seek treatment for hep C. Recommending f/u with Dr. Mendosa, as she will need treatment discussions for hepatitis C and her cirrhosis. The patient had no evidence of ascites on any scans or clinically. The patient' s ABG showed a pH of 7.44, CO2 of 33.9, O2 of 52.2, AA gradient of 55. Potassium was slightly low at 3.4, replaced raised to 3.6. BNP was normal at 19. Troponins were normal at 0.015. Ammonia was elevated at 73. She was treated with lactulose and had several bowel movements on 09/03/2019 and continue this treatment outpatient. T bilirubin downtrended from 2.3 to 1.4. Urine drug screen was negative. RPR negative. There is no evidence of acute cholecystitis on HIDA scan, but she refused the rest of the HIDA scan due to the length of the procedure. Echo showed EF of 60% to 65% with grade 1/3 diastolic dysfunction. The patient's acute hypoxic respiratory failure improved as well as her abdominal pain. This abdominal pain was thought to be due to stretch of the E[place] capsule around the liver. DISPOSITION: The patient was stable upon discharge. DISCHARGE INSTRUCTIONS: 1. Location: Home. 2. Diet: Low protein diet for cirrhosis. 3. Activity: As tolerated. 4. Followup: With Dr. Mendosa in 1 week, primary care in 1 week. Job ID: [id number] [facility]
--- NOTE | 2019-09-11 10:53 | EKG ---
Test Reason : BDOMINAL PAIN Blood Pressure : / mmHG Vent. Rate : 087 BPM Atrial Rate : 087 BPM P-R Int : 106 ms QRS Dur : 084 ms QT Int : 400 ms P-R-T Axes : 000 211 157 degrees QTc Int : 481 ms Sinus rhythm with short SC Right superior axis deviation Abnormal ECG Confirmed by SHANITA IVAN, JARED Francis ([id number]), editor dictionary NYDIA CLARK ([id number]) on 09/11/2019 10:52:43 AM Referred By: Confirmed By:JARED DIEHL MD
== END 2019-09-04 11:20 | disposition home or self-care (01) ==
LOC: ERS 13:55 → 2SW 17:28
PROVIDERS: ADMIT Family Medicine; ATTEND Family Medicine
DX: J96.01 Acute respiratory failure with hypoxia (principal); K72.90 Hepatic failure, unspecified without coma; B19.20 Unspecified viral hepatitis C without hepatic coma; K74.60 Unspecified cirrhosis of liver; J44.9 Chronic obstructive pulmonary disease, unspecified; I50.9 Heart failure, unspecified; R10.11 Right upper quadrant pain; Z79.899 Other long term (current) drug therapy; Z87.891 Personal history of nicotine dependence; Z91.018 Allergy to other foods; Z91.041 Radiographic dye allergy status; Z66 Do not resuscitate
CPT/HCPCS: 71045; 74176; 76705; 78227; 80053 ×2; 80306; 82140; 82550; 82805; 83880; 84484; 85025 ×2; 85610; 85730; 86780; 87389; 93005; 93306; 94640 ×6; 97139 ×3; 99285; A9537; G0378 ×4; 36415; Q0162

== ENCOUNTER 2019-10-14 12:05 | Day surgery (SDC) | payer MEDICARE, MEDICAID ==
[2019-10-13 11:54] VITALS: BMI 27.3
[~2019-10-14 12:05] MED LIST changes: -Iopamidol-370 76% 500 ML 1 ML ONE; +PROPOFOL 200 MG/20 ML VIAL ONE
[2019-10-14] MEDS ORDERED: Fentanyl 100 MCG/2 ML VIAL ONE (14:18)
--- NOTE | 2019-10-14 16:01 | OP ---
DATE OF PROCEDURE: 10/14/2019 PRIMARY CARE PHYSICIAN: [facility], Dr. Nay Torres. PROCEDURE PERFORMED: Esophagogastroduodenoscopy. PREPROCEDURE DIAGNOSES: 1. History of esophageal varices, last esophagogastroduodenoscopy in September 2017. 2. History of cirrhosis. 3. History of hepatitis C infection. POSTPROCEDURE DIAGNOSES: 1. Exam to second portion of duodenum. 2. 1 to 2 cm sliding hiatal hernia. 3. Mild scarring in the distal esophagus from previous variceal banding, but no obvious esophageal varices. 4. Diffuse portal gastropathy, mild severity, gastric body and antrum. 5. No gastric varices. 6. Unremarkable duodenum. DESCRIPTION OF PROCEDURE: Written informed consent was obtained. The patient was brought to the endoscopy suite. Total intravenous anesthesia was administered by Ms. Lida Da Silva CRNA. The patient was placed in the left lateral decubitus position. A bite block was inserted into the mouth. A Pentax video therapeutic gastroscope was introduced into the oral cavity, and the esophagus was carefully intubated. The gastroscope was advanced under direct visualization to the second portion of the duodenum. Endoscopic findings revealed mild scarring in the distal esophagus from previous variceal banding. There was no evidence of esophageal varices or recent stigmata of bleeding in the distal esophagus. A small 1 to 2 cm sliding hiatal hernia was identified. No esophageal ulcers were seen. Examination of the stomach including a retroflexed view of the cardia and fundus demonstrated mucosal changes in the gastric body and antrum consistent with a mild portal gastropathy. No ulcers were seen. There was no evidence of gastric varices in the fundus. Examination of the duodenum from the bulb to the second portion was also unremarkable. No duodenal varices or ulcers were seen. The stomach was decompressed as the endoscope was completely removed from the patient. She was transferred to the Day Stay surgery area for postprocedure monitoring. There were no immediate complications. RECOMMENDATIONS: 1. Resume previous low-sodium diet. 2. Resume previous medications. 3. Continue pantoprazole 40 mg daily. 4. Follow up in the GI office with Juan to discuss hepatitis C therapy. 5. Repeat EGD in 12 to 18 months. Job ID: [id number]
== END 2019-10-14 13:28 | disposition home or self-care (01) ==
LOC: SDC 12:05
PROVIDERS: ATTEND Internal Medicine Gastroenterology
PROC: 0DJ08ZZ Inspection of Upper Intestinal Tract, Via Natural or Artificial Opening Endoscopic (ICD-10-PCS; principal; 2019-10-14)
DX: I85.00 Esophageal varices without bleeding (principal); K31.89 Other diseases of stomach and duodenum; K44.9 Diaphragmatic hernia without obstruction or gangrene; K74.60 Unspecified cirrhosis of liver; Z86.010 Personal history of colon polyps; Z79.899 Other long term (current) drug therapy; Z91.041 Radiographic dye allergy status; Z98.890 Other specified postprocedural states
CPT/HCPCS: J2704; J3010

== ENCOUNTER 2019-12-23 19:10 | Emergency (ER) | payer MEDICARE, OTHER ==
[2019-12-23 20:07] LABS: #Eosinphils 0.1 thou/uL (0.0-0.7); #Lymphocytes 0.4 thou/uL (1.20-3.40); #Monocytes 0.3 thou/uL (0.11-0.59); #Neutrophils 4.4 thou/uL (1.40-6.50); %Basophils 0.1 % (0.0-1.0); %Eosinophils 1.5 % (0.0-10.0); %Lymphocytes 7.3 % (21.0-51.0); %Monocytes 5.5 % (0.0-10.0); %Neutrophils 85.7 % (42.0-75.0); Hemoglobin 13.4 g/dL (12.0-16.0); Mean Corpuscular HGB CONC 33.3 g/dL (32.0-36.0); Mean Corpuscular Hemoglobin 32.5 pg (27.0-31.0); Mean Corpuscular Volume 97.4 fL (78.0-98.0); Mean Platelet Volume 10.3 fL (7.4-10.4); Platelet Count 56 thou/uL (130-400); RBC Distribution Width 14.6 % (11.5-14.5); Red Blood Cell (RBC) Count 4.13 mill/uL (4.20-5.40); White Blood Cell (WBC) Count 5.2 thou/uL (4.8-10.8)
[2019-12-23 20:20] LABS: ALT (SGPT) 23 U/L (8-55); AST (SGOT) 53 U/L (5-34); Albumin 2.7 g/dL (3.4-4.8); Alkaline Phosphatase 125 U/L (40-110); Anion Gap 13 mmol/L (10-20); BUN (Urea Nitrogen) 19 mg/dL (9.8-20.1); Bilirubin, Total 1.6 mg/dL (0.2-1.2); CK (CPK) 399 U/L (29-168); Calc. Creatinine Clearance 0 mL/min (70-130); Carbon Dioxide 18 mmol/L (23-31); Chloride 112 mmol/L (98-107); Estimated GFR-MDRD 65; Glucose 117 mg/dL (80-115); Lipase 12 U/L (8-78); Potassium 3.9 mmol/L (3.5-5.1); Protein, Total 6.7 g/dL (6.0-8.3); Sodium 139 mmol/L (136-145)
[2019-12-23 20:21] LABS: Acetaminophen Less than 6.0 mcg/mL (10.0-30.0); Alcohol Less than 10 mg/dL (Less than 10); Salicylate Less than 8.0 mg/dL (15.0-30.0)
--- NOTE | 2019-12-23 20:34 | RAD ---
PORTABLE CHEST: 12/23/19 HISTORY: Syncope. COMPARISON: 09/02/19. Cardiomegaly. There is vascular and interstitial congestion. There is evidence of diffuse interstitia l and early hazy alveolar edema. Superimposed infiltrate in the right lower lung cannot be excluded. No significant effusion. IMPRESSION: Cardiomegaly. Evidence of vascular and interstitial congestion with alveolar edema and/or infiltrate in both lower lungs, more prominent on the right. POS: AGW
[2019-12-23 20:42] LABS: CKMB 2.3 ng/mL (0-6.6)
--- NOTE | 2019-12-23 20:42 | CT ---
CT HEAD WITHOUT CONTRAST: 12/23/19 HISTORY: Syncope. Comparison made to CT of 09/29/17. There is mild cortical volume loss. Ventricles are mildly prominent in size but similar appearance to prior exam. There are postoperative changes. 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 There is no evidence of acute intracranial mass or h emorrhage. IMPRESSION: No acute process. Stable postoperative changes and chronic parenchymal changes when compared to prior study. POS: AGW
[2019-12-23 20:46] LABS: Bacteria/HPF None Seen HPF (None Seen); Bilirubin Negative (Negative); Blood, Urine Negative (Negative); Clarity Clear (Clear); Glucose, Urine (Dipstick) Normal (Negative); Leukocyte Negative Leu/uL (Negative); Mucous/LPF 1+ LPF (<2+); Nitrite Negative (Negative); Protein, Urine (Dipstick) 30 mg/dL (Neg-Trace); RBC/HPF 0-3 HPF (0-3); Squamous Epithelial 0-3 HPF (0-3); Urobilinogen 3 mg/dL (Less than 2); WBC/HPF 0-3 HPF (0-3)
[2019-12-23 20:52] LABS: Amphetamine Not Detected (NotDetected); Barbiturates Screen Not Detected (NotDetected); Benzodiazepine Screen Not Detected (NotDetected); Cocaine Metabolite Screen Not Detected (NotDetected); Medtox Control Line Valid? VALID (VALID); Medtox Reader # READER 4; Methadone Not Detected (NotDetected); Methamphetamine Not Detected (NotDetected); Opiate Screen Not Detected (NotDetected); Oxycodone Screen Not Detected (NotDetected); Phencyclidine (PCP) Not Detected (NotDetected); THC/Cannabinoid Screen Not Detected (NotDetected); Tricyclic Screen Detected (NotDetected)
--- NOTE | 2019-12-24 14:33 | EKG ---
Test Reason : Blood Pressure : / mmHG Vent. Rate : 081 BPM Atrial Rate : 081 BPM P-R Int : 148 ms QRS Dur : 084 ms QT Int : 446 ms P-R-T Axes : 028 -13 023 degrees QTc Int : 518 ms Normal sinus rhythm Prolonged QT Abnormal ECG Confirmed by TALITA IVAN, EDIL ([id number]), editor map LUIGI SEGOVIA ([id number]) on 12/24/2019 2:33:13 PM Referred By: Confirmed By:EDIL SANON MD
== END 2019-12-23 22:32 | disposition home or self-care (01) ==
LOC: ERS 19:10
DX: R55 Syncope and collapse (principal); I95.9 Hypotension, unspecified; I50.9 Heart failure, unspecified; E86.0 Dehydration; Z86.73 Personal history of transient ischemic attack (TIA), and cerebral infarction without residual deficits; F31.9 Bipolar disorder, unspecified; F41.9 Anxiety disorder, unspecified; Z87.891 Personal history of nicotine dependence; Z79.899 Other long term (current) drug therapy
CPT/HCPCS: 51701; 70450; 71045; 80053; 80306; 80307; 81003; 81015; 82550; 82553; 83605; 83690; 83880; 84443; 84484; 85025; 85379; 87040; 93005; 96360; A4353

== ENCOUNTER 2020-05-02 16:16 | Emergency (ER) | payer MEDICARE, MEDICAID ==
[2020-05-02 17:05] LABS: #Eosinphils 0.1 thou/uL (0.0-0.7); #Lymphocytes 1.4 thou/uL (1.20-3.40); #Monocytes 0.3 thou/uL (0.11-0.59); #Neutrophils 1.3 thou/uL (1.40-6.50); %Basophils 1.4 % (0.0-1.0); %Eosinophils 4.7 % (0.0-10.0); %Lymphocytes 45.5 % (21.0-51.0); %Monocytes 8.3 % (0.0-10.0); %Neutrophils 40.1 % (42.0-75.0); Hemoglobin 14.4 g/dL (12.0-16.0); Mean Corpuscular HGB CONC 32.7 g/dL (32.0-36.0); Mean Corpuscular Hemoglobin 34.1 pg (27.0-31.0); Platelet Count 67 thou/uL (130-400); RBC Distribution Width 15.4 % (11.5-14.5); Red Blood Cell (RBC) Count 4.22 mill/uL (4.20-5.40); White Blood Cell (WBC) Count 3.1 thou/uL (4.8-10.8)
[2020-05-02 17:28] LABS: ALT (SGPT) 14 U/L (8-55); AST (SGOT) 25 U/L (5-34); Albumin 2.5 g/dL (3.4-4.8); Alkaline Phosphatase 123 U/L (40-110); Anion Gap 11 mmol/L (10-20); BUN (Urea Nitrogen) 11 mg/dL (9.8-20.1); Bilirubin, Total 2.5 mg/dL (0.2-1.2); Calc. Creatinine Clearance 0 mL/min (70-130); Calcium 7.7 mg/dL (7.8-10.44); Carbon Dioxide 22 mmol/L (23-31); Chloride 109 mmol/L (98-107); Estimated GFR-MDRD 76; Globulin 3.8 g/dL (2.4-3.5); Glucose 142 mg/dL (80-115); Potassium 3.5 mmol/L (3.5-5.1); Protein, Total 6.3 g/dL (6.0-8.3); Sodium 138 mmol/L (136-145)
--- NOTE | 2020-05-02 17:35 | RAD ---
RADIOGRAPH CHEST 1 VIEW: DATE: 05/02/2020 TIME: 5:15 PM HISTORY: Syncope. Concern for aspiration COMPARISON: 12/23/2019 FINDINGS: Bilateral nodular interstitial infiltrates, greatest at right base no cardiomegaly or pneumothorax. IMPRESSION: No change in chronic interstitial infiltrates
[2020-05-03 14:05] LABS: SARS-CoV-2 MS2 Positive; SARS-CoV-2 N Gene Negative; SARS-CoV-2 S Gene Negative; SARS-CoV-2 by NAA Not Detected (NotDetected); SARS-CoV-2 orf1ab Negative
--- NOTE | 2020-05-06 15:49 | EKG ---
Test Reason : SOB Blood Pressure : / mmHG Vent. Rate : 070 BPM Atrial Rate : 070 BPM P-R Int : 158 ms QRS Dur : 102 ms QT Int : 444 ms P-R-T Axes : -76 -10 025 degrees QTc Int : 479 ms Unusual P axis, possible ectopic atrial rhythm Abnormal ECG Confirmed by SEBASTIEN LE DO ([id number]), editor magazine LUIGI SEGOVIA ([id number]) on 05/06/2020 3:49:00 PM Referred By: Confirmed By:SEBASTIEN LE DO
== END 2020-05-02 19:46 | disposition home or self-care (01) ==
LOC: ERS 16:16
DX: J44.0 Chronic obstructive pulmonary disease with (acute) lower respiratory infection (principal); K74.60 Unspecified cirrhosis of liver; J44.9 Chronic obstructive pulmonary disease, unspecified; B19.20 Unspecified viral hepatitis C without hepatic coma; F41.9 Anxiety disorder, unspecified; F31.9 Bipolar disorder, unspecified; F03.90 Unspecified dementia, unspecified severity, without behavioral disturbance, psychotic disturbance, mood disturbance, and anxiety; Z20.828 Contact with and (suspected) exposure to other viral communicable diseases; Z87.891 Personal history of nicotine dependence; Z86.73 Personal history of transient ischemic attack (TIA), and cerebral infarction without residual deficits; Z79.899 Other long term (current) drug therapy
CPT/HCPCS: 71045; 80053; 83880; 84484; 85025; 93005; 94760; 99285; U0003; 36415; 87635